=== PATIENT | female | born 2005 | race Caucasian/White ===

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

== ENCOUNTER 2023-04-04 12:47 | Emergency (ER) | payer OTHER ==
[2023-04-04 13:45] VITALS: RESP 16
[2023-04-04] MEDS ORDERED: METOCLOPRAMIDE 5 MG/ML 2 ML VIAL IVP STA (14:16)
[2023-04-04] MEDS ORDERED: SODIUM CHLORIDE 0.9% 2,000 ML IV STA (14:16)
--- NOTE | 2023-04-04 14:28 | ED ---
Nausea/Vomiting/Diarrhea HPI - General Source: patient, RN notes reviewed Mode of arrival: ambulatory Limitations: no limitations <Laz Cook - Last Filed: 04/04/23 15:39> <Marvin Hobbs - Last Filed: 04/05/23 06:24> - General Chief complaint: Nausea/Vomiting/Diarrhea Stated complaint: Vomiting, 6 wks Time Seen by Provider: 04/04/23 14:00 - History of Present Illness Initial comments: 17-year-old female presents emergency Department with chief complaint of nausea vomiting . Patient states she is A0 currently 5-6 weeks . Patient denies any vaginal bleeding states she does have mild discomfort denies follow-up with CIVIL DRAFTER this point states she's been vomiting every morning. In which she states she's not been able stop eating today. Patient denies any hematemesis denies fevers or chills. (Laz Cook) - Related Data Home Medications Medication Instructions Recorded Confirmed Albuterol Sulfate [Proair Hfa] 1 - 2 puff INHALATION RT-Q4H PRN 08/20/22 08/20/22 Previous Rx's Medication Instructions Recorded Doxycycline [Vibramycin] 100 mg PO BID 1 Days #28 each 08/20/22 Naproxen [Naprosyn] 375 mg PO Q12HR PRN #20 tablet 08/20/22 Ondansetron Odt [Zofran Odt] 4 mg PO Q8HR PRN #10 tab 04/04/23 Allergies Allergy/AdvReac Type Severity Reaction Status Date / Time No Known Allergies Allergy Verified 04/04/23 13:42 Review of Systems ROS Other: All systems not noted in ROS Statement are negative. <aLz Cook - Last Filed: 04/04/23 15:39> ROS Other: All systems not noted in ROS Statement are negative. <Marvin Hobbs - Last Filed: 04/05/23 06:24> ROS Statement: Those systems with pertinent positive or pertinent negative responses have been documented in the HPI. Past Medical History Past Medical History: No Reported History History of Any Multi-Drug Resistant Organisms: None Reported Past Surgical History: No Surgical Hx Reported Past Psychological History: ADD/ADHD, Depression Smoking Status: Vaper Past Alcohol Use History: None Reported Past Drug Use History: None Reported <Laz Cook - Last Filed: 04/04/23 15:39> General Exam Limitations: no limitations General appearance: alert, in no apparent distress Head exam: Present: atraumatic, normocephalic, normal inspection Eye exam: Present: normal appearance, PERRL, EOMI. Absent: scleral icterus, conjunctival injection, periorbital swelling ENT exam: Present: normal exam, mucous membranes moist Neck exam: Present: normal inspection, full ROM. Absent: tenderness, meningismus, lymphadenopathy Respiratory exam: Present: normal lung sounds bilaterally. Absent: respiratory distress, wheezes, rales, rhonchi, stridor Cardiovascular Exam: Present: regular rate, normal rhythm, normal heart sounds. Absent: systolic murmur, diastolic murmur, rubs, gallop, clicks GI/Abdominal exam: Present: soft, normal bowel sounds. Absent: distended, tenderness, guarding, rebound, rigid <Laz Cook - Last Filed: 04/04/23 15:39> Course Vital Signs 04/04/23 04/04/23 13:42 15:45 Temperature 97.7 F 97.9 F Pulse Rate 79 88 Respiratory 16 16 Rate Blood Pressure 105/69 121/81 O2 Sat by Pulse 100 96 Oximetry Medical Decision Making - Lab Data Result diagrams: 04/04/23 14:25 04/04/23 14:25 <Laz Cook - Last Filed: 04/04/23 15:39> - Lab Data Result diagrams: 04/04/23 14:25 04/04/23 14:25 <Marvin Hobbs - Last Filed: 04/05/23 06:24> - Medical Decision Making Was pt. sent in by a medical professional or institution (, PA, MOBILE MARKETING SPECIALIST, urgent care, hospital, or care home...) When possible be specific @ -No Did you speak to anyone other than the patient for history (EMS, parent, family, police, friend...)? What history was obtained from this source @ -No Did you review nursing and triage notes (agree or disagree)? Why? @ -I reviewed and agree with nursing and triage notes Were old charts reviewed (outside hosp., previous admission, EMS record, old EKG, old radiological studies, urgent care reports/EKG's, care home records)? Report findings @ -No old charts were reviewed Differential Diagnosis (chest pain, altered mental status, abdominal pain women, abdominal pain men, vaginal bleeding, weakness, fever, dyspnea, syncope, headache, dizziness, GI bleed, back pain, seizure, CVA, palpatations, mental health, musculoskeletal)? @ -Nausea vomiting , dehydration, miscarriage EKG interpreted by me (3pts min.). @ -None X-rays interpreted by me (1pt min.). @ -None done CT interpreted by me (1pt min.). @ -None done U/S interpreted by me (1pt. min.). @ -Ultrasound shows single viable IUP 6 weeks and 3 days What testing was considered but not performed or refused? (CT, X-rays, U/S, labs)? Why? @ -None What meds were considered but not given or refused? Why? @ -None Did you discuss the management of the patient with other professionals (carmita martin i.e. , PA, MOBILE MARKETING SPECIALIST, lab, RT, psych nurse, perinatal social worker, acquisition editor, teacher, facility security officer, rifle case repairer)? Give summary @ -No Was smoking cessation discussed for >3mins.? @ -No Was critical care preformed (if so, how long)? @ -No Were there social determinants of health that impacted care today? How? (Homelessness, low income, unemployed, alcoholism, drug addiction, transportatio n, low edu. Level, literacy, decrease access to med. care, [facility], rehab)? @ -No Was there de-escalation of care discussed even if they declined (Discuss DNR or withdrawal of care, Hospice)? DNR status @ -No What co-morbidities impacted this encounter? (DM, HTN, Smoking, COPD, CAD, Cancer, CVA, ARF, Chemo, Hep., AIDS, mental health diagnosis, sleep apnea, morbid obesity)? @ -None Was patient admitted / discharged? Hospital course, mention meds given and route, prescriptions, significant lab abnormalities, going to OR and other pertinent info. @ -Discharge patient feels greatly improved with IV fluids and antiemetics ultrasound is unremarkable patient discharged in stable condition. course Undiagnosed new problem with uncertain prognosis? @ -No Drug Therapy requiring intensive monitoring for toxicity (Heparin, Nitro, Insulin, Cardizem)? @ -No Were any procedures done? @ -No Diagnosis/symptom? @ -Nausea vomiting Acute, or Chronic, or Acute on Chronic? @ -Acute Uncomplicated (without systemic symptoms) or Complicated (systemic symptoms)? @ -Uncomplicated Side effects of treatment? @ -No Exacerbation, Progression, or Severe Exacerbation? @ -No Poses a threat to life or bodily function? How? (Chest pain, USA, [place], pneumonia, PE, COPD, DKA, ARF, appy, cholecystitis, CVA, Diverticulitis, Homicidal, Suicidal, threat to staff... and all critical care pts) @ -No (Laz Cook) - Lab Data Lab Results 04/04/23 04/04/23 04/04/23 Range/Units 14:25 14:25 14:25 WBC 9.1 (4.0-11.0) k/uL RBC 4.82 (3.80-5.40) m/uL Hgb 14.8 (11.4-16.0) gm/dL Hct 42.1 (34.0-46.0) % MCV 87.4 (80.0-100.0) fL MCH 30.7 (25.0-35.0) pg MCHC 35.2 (31.0-37.0) g/dL RDW 12.1 (11.5-15.5) % Plt Count 254 (150-450) k/uL MPV 7.9 Neutrophils % 65 % Lymphocytes % 27 % Monocytes % 4 % Eosinophils % 3 % Basophils % 1 % Neutrophils # 5.9 (1.3-7.7) k/uL Lymphocytes # 2.4 (1.0-4.8) k/uL Monocytes # 0.4 (0-1.0) k/uL Eosinophils # 0.2 (0-0.7) k/uL Basophils # 0.1 (0-0.2) k/uL Sodium 136 L (137-145) mmol/L Potassium 4.0 (3.5-5.1) mmol/L Chloride 101 (98-107) mmol/L Carbon Dioxide 23 (22-30) mmol/L Anion Gap 12 mmol/L BUN 7 (7-17) mg/dL Creatinine 0.57 (0.52-1.04) mg/dL Est GFR (CKD-EPI)AfAm >90 (>60 ml/min/1.73 sqM) Est GFR (CKD-EPI)NonAf >90 (>60 ml/min/1.73 sqM) Glucose 86 (74-99) mg/dL Calcium 9.6 (8.4-10.2) mg/dL Magnesium 2.0 (1.6-2.3) mg/dL Total Bilirubin 1.1 (0.2-1.3) mg/dL AST 23 (14-36) U/L ALT 15 (4-34) U/L Alkaline Phosphatase 55 (38-126) U/L Total Protein 7.9 (6.3-8.2) g/dL Albumin 4.8 (3.5-5.0) g/dL HCG, Quant 66421.4 mIU/mL Urine Color Colorless Urine Appearance C (Clear) Urine pH 7.5 (5.0-8.0) Ur Specific [place] 1.015 (1.001-1.035) Urine Protein Negative (Negative) Urine Glucose (UA) Negative (Negative) Urine Ketones Negative (Negative) Urine Blood Negative (Negative) Urine Nitrite Negative (Negative) Urine Bilirubin Negative (Negative) Urine Urobilinogen <0.2 (<2.0) mg/dL Ur Leukocyte Esterase Negative (Negative) Urine RBC <1 (0-5) /hpf Urine WBC 1 (0-5) /hpf Ur Squamous Epith Cells 1 (0-4) /hpf Urine Bacteria Occasional H (None) /hpf Urine Mucus Rare H (None) /hpf Urine Opiates Screen Not Detected (NotDetected) Ur Oxycodone Screen Not Detected (NotDetected) Urine Methadone Screen Not Detected (NotDetected) Ur Propoxyphene Screen Not Detected (NotDetected) Ur Barbiturates Screen Not Detected (NotDetected) U Tricyclic Antidepress Not Detected (NotDetected) Ur Phencyclidine Scrn Not Detected (NotDetected) Ur Amphetamines Screen Not Detected (NotDetected) U Methamphetamines Scrn Not Detected (NotDetected) U Benzodiazepines Scrn Not Detected (NotDetected) Urine Cocaine Screen Not Detected (NotDetected) U Marijuana (THC) Screen Detected H (NotDetected) Disposition Is patient prescribed a controlled substance at d/c from ED?: No <Laz Cook - Last Filed: 04/04/23 15:39> <Marvin Hobbs - Last Filed: 04/05/23 06:24> Clinical Impression: Nausea/vomiting in Disposition: HOME SELF-CARE Condition: Stable Instructions (If sedation given, give patient instructions): Acute Nausea and Vomiting (ED) Additional Instructions: Please return to the Emergency Department if symptoms worsen or any other concerns. Prescriptions: Ondansetron Odt [Zofran Odt] 4 mg PO Q8HR PRN #10 tab PRN Reason: Nausea Referrals: None,Stated [Primary Care Provider] - 1-2 days
[2023-04-04 14:38] LABS: Basophils # (A) 0.1 k/uL (0-0.2); Basophils % (A) 1 %; Eosinophils # (A) 0.2 k/uL (0-0.7); Eosinophils % (A) 3 %; HCT 42.1 % (34.0-46.0); HGB 14.8 gm/dL (11.4-16.0); Lymphocytes # (A) 2.4 k/uL (1.0-4.8); Lymphocytes % (A) 27 %; MCH 30.7 pg (25.0-35.0); MCHC 35.2 g/dL (31.0-37.0); MCV 87.4 fL (80.0-100.0); Mean Platelet Volume 7.9; Monocytes # (A) 0.4 k/uL (0-1.0); Monocytes % (A) 4 %; Neutrophils # (A) 5.9 k/uL (1.3-7.7); Neutrophils % (A) 65 %; Platelet Count 254 k/uL (150-450); RBC 4.82 m/uL (3.80-5.40); RDW 12.1 % (11.5-15.5); WBC 9.1 k/uL (4.0-11.0)
[2023-04-04 15:07] LABS: Bilirubin,Urine Negative (Negative); Blood,Urine Negative (Negative); Color,Urine Colorless; Glucose,Urine (UA) Negative (Negative); Ketones,Urine Negative (Negative); Leukocyte Esterase,Urine Negative (Negative); Nitrite,Urine Negative (Negative); PH, Urine 7.5 (5.0-8.0); Protein,Urine Negative (Negative); Specific Gravity,Urine 1.015 (1.001-1.035); Urobilinogen,Urine <0.2 mg/dL (<2.0)
[2023-04-04 15:10] LABS: Bacteria,Urine Occasional /hpf; Mucus,Urine Rare /hpf; RBC,Urine <1 /hpf (0-5); Squamous Epithelial Cell,Urine 1 /hpf (0-4); WBC,Urine 1 /hpf (0-5)
[2023-04-04 15:13] LABS: Amphetamine Screen,Urine Not Detected (NotDetected); Barbiturate Screen,Urine Not Detected (NotDetected); Benzodiazepines Screen,Urine Not Detected (NotDetected); Cocaine Screen,Urine Not Detected (NotDetected); Methadone Screen, Urine Not Detected (NotDetected); Opiate Screen,Urine Not Detected (NotDetected); Oxycodone Screen, Urine Not Detected (NotDetected); Phencyclidine Screen,Urine Not Detected (NotDetected); Tricyclic Antidepressant,Urine Not Detected (NotDetected); Urn Cannabinoid Scrn Detected (NotDetected)
[2023-04-04 15:24] LABS: ALT 15 U/L (4-34); AST 23 U/L (14-36); African American GFR (CKD) >90 (>60 ml/min/1.73 sqM); Albumin 4.8 g/dL (3.5-5.0); Alkaline Phosphatase 55 U/L (38-126); Anion Gap 12 mmol/L; Blood Urea Nitrogen 7 mg/dL (7-17); Calcium 9.6 mg/dL (8.4-10.2); Carbon Dioxide 23 mmol/L (22-30); Chloride 101 mmol/L (98-107); Glucose 86 mg/dL (74-99); Non-African American GFR(CKD) >90 (>60 ml/min/1.73 sqM); Sodium 136 mmol/L (137-145); Total Bilirubin 1.1 mg/dL (0.2-1.3); Total Protein 7.9 g/dL (6.3-8.2)
--- NOTE | 2023-04-04 15:37 | US ---
EXAMINATION TYPE: Transabdominal DATE OF EXAM: 04/04/2023 3:11 PM COMPARISON: NONE CLINICAL INDICATION: Female, 17 years old with history of pain; nausea and vomiting EXAM PERFORMED: Transabdominal (TA) EXAM MEASUREMENTS: GESTATIONAL AGE / DATING Physician Established: Not yet established Dates by LMP: LMP unknown Dates by First Scan: No previous this is first scan Dates by Current Scan for: (6 weeks/3 days) EDC: 11/25/2023 MATERNAL ANATOMY Uterus: 7.7 x 6.1 x 7.0 cm Right Ovary: Obscured by bowel gas. Left Ovary: 2.9 x 1.5 x 1.9 cm Post CDS / Adnexa: wnl Presence of free fluid: no Presence of corpus luteal cyst: no Presence of subchorionic bleed: no GESTATION / SURVEY CRL: 0.60 cm (6 weeks/3 days) Yolk Sac (normal less than 6mm): 3 mm Heart Rate: 157 bpm Rhythm: Normal IUP: Viable IUP IMPRESSION: Single viable intrauterine .
[2023-04-04 15:54] VITALS: BP 121/81; PULSE 88; TEMP 97.9
[2023-04-04 16:16] LABS: HCG,Quantitative Serum 49858.4 mIU/mL
[2023-04-07 08:33] LABS: Appearance,Urine Clear (Clear)
== END 2023-04-04 15:52 | disposition home or self-care (01) ==
LOC: EC 12:47
DX: O21.9 Vomiting of pregnancy, unspecified (principal); O99.331 Smoking (tobacco) complicating pregnancy, first trimester; F17.290 Nicotine dependence, other tobacco product, uncomplicated; Z86.59 Personal history of other mental and behavioral disorders; Z3A.01 Less than 8 weeks gestation of pregnancy
CPT/HCPCS: 36415; 80053; 83735; 85025; 81003; 81001; 84702; 80306; 76801; 99284; 96374; 96361; J2765

== ENCOUNTER 2023-04-23 09:14 | Emergency (ER) | payer OTHER ==
[2023-04-23] MEDS ORDERED: SODIUM CHLORIDE 0.9% 1,000 ML IV ONE ×2 (09:25→11:30)
--- NOTE | 2023-04-23 09:30 | ED ---
General Adult HPI - General Chief complaint: Nausea/Vomiting/Diarrhea Stated complaint: 9wks preg, vomiting Time Seen by Provider: 04/23/23 09:16 Source: patient, RN notes reviewed, old records reviewed Mode of arrival: ambulatory Limitations: no limitations - History of Present Illness Initial comments: 17-year-old female presenting for evaluation of persistent nausea and vomiting over the past one week or so. Patient is currently 9 weeks . She had been seen in the emergency department and proceeded ultrasound several weeks prior. She has not had her scheduled initial appointment with obstetrics. No abdominal pain. No fever. - Related Data Home Medications Medication Instructions Recorded Confirmed Albuterol Sulfate [Proair Hfa] 1 - 2 puff INHALATION RT-Q4H PRN 08/20/22 08/20/22 Previous Rx's Medication Instructions Recorded Doxycycline [Vibramycin] 100 mg PO BID 1 Days #28 each 08/20/22 Naproxen [Naprosyn] 375 mg PO Q12HR PRN #20 tablet 08/20/22 Ondansetron Odt [Zofran Odt] 4 mg PO Q8HR PRN #10 tab 04/04/23 Cephalexin [Keflex] 500 mg PO Q12HR #20 cap 04/23/23 Doxylamine Succinate [Unisom] 25 mg PO Q6H #30 tab 04/23/23 Pyridoxine [Vitamin B-6] 50 mg PO BID 30 Days #60 tablet 04/23/23 Allergies Allergy/AdvReac Type Severity Reaction Status Date / Time No Known Allergies Allergy Verified 04/23/23 09:17 Review of Systems ROS Statement: Those systems with pertinent positive or pertinent negative responses have been documented in the HPI. ROS Other: All systems not noted in ROS Statement are negative. Past Medical History Past Medical History: No Reported History History of Any Multi-Drug Resistant Organisms: None Reported Past Surgical History: No Surgical Hx Reported Past Psychological History: ADD/ADHD, Depression Smoking Status: Vaper Past Alcohol Use History: None Reported Past Drug Use History: None Reported General Exam Limitations: no limitations General appearance: alert, in no apparent distress Head exam: Present: atraumatic, normocephalic Eye exam: Present: normal appearance, PERRL ENT exam: Present: mucous membranes dry Neck exam: Present: normal inspection. Absent: tenderness, meningismus Respiratory exam: Present: normal lung sounds bilaterally. Absent: respiratory distress, wheezes Cardiovascular Exam: Present: regular rate, normal rhythm GI/Abdominal exam: Present: soft. Absent: distended, tenderness, guarding, rebound Extremities exam: Present: normal inspection, normal capillary refill Neurological exam: Present: alert, oriented X3. Absent: CN II-XII intact, motor sensory deficit Psychiatric exam: Present: normal affect, normal mood Skin exam: Present: warm, dry, intact. Absent: cyanosis, diaphoretic Course Vital Signs 04/23/23 04/23/23 04/23/23 09:15 10:37 11:40 Temperature 98.4 F 98.5 F 98.4 F Pulse Rate 72 75 76 Respiratory 20 17 18 Rate Blood Pressure 135/74 110/75 108/66 O2 Sat by Pulse 99 100 100 Oximetry Medical Decision Making - Medical Decision Making Was pt. sent in by a medical professional or institution (DIAN Fitzpatrick, WATER CONTROL SUPERVISOR, urgent care, hospital, or alf...) When possible be specific @ -No Did you speak to anyone other than the patient for history (EMS, parent, family, police, friend...)? What history was obtained from this source @ -No Did you review nursing and triage notes (agree or disagree)? Why? @ -I reviewed and agree with nursing and triage notes Were old charts reviewed (outside hosp., previous admission, EMS record, old EKG, old radiological studies, urgent care reports/EKG's, alf records)? Report findings @ -No old charts were reviewed Differential Diagnosis (chest pain, altered mental status, abdominal pain women, abdominal pain men, vaginal bleeding, weakness, fever, dyspnea, syncope, headache, dizziness, GI bleed, back pain, seizure, CVA, palpatations, mental health, musculoskeletal)? @Nausea vomiting of , hyperemesis gravidarum, acute cholecystitis, gastroenteritis EKG interpreted by me (3pts min.). @ -As above X-rays interpreted by me (1pt min.). @ -None done CT interpreted by me (1pt min.). @ -None done U/S interpreted by me (1pt. min.). @ -None done What testing was considered but not performed or refused? (CT, X-rays, U/S, labs)? Why? @ -None What meds were considered but not given or refused? Why? @ -None Did you discuss the management of the patient with other professionals (professionals i.e. , PA, WATER CONTROL SUPERVISOR, lab, RT, psych nurse, social service worker, varnish supervisor, teacher, medical laboratory technical officer, telephonic case manager)? Give summary @ -No Was smoking cessation discussed for >3mins.? @ -No Was critical care preformed (if so, how long)? @ -No Were there social determinants of health that impacted care today? How? (Homeles sness, low income, unemployed, alcoholism, drug addiction, transportation, low edu. Level, literacy, decrease access to med. care, [facility] [facility], rehab)? @ -No Was there de-escalation of care discussed even if they declined (Discuss DNR or withdrawal of care, Hospice)? DNR status @ -No What co-morbidities impacted this encounter? (DM, HTN, Smoking, COPD, CAD, Cancer, CVA, ARF, Chemo, Hep., AIDS, mental health diagnosis, sleep apnea, morbid obesity)? @Current Was patient admitted / discharged? Hospital course, mention meds given and route, prescriptions, significant lab abnormalities, going to OR and other pertinent info. @ -[17-year-old female with persistent nausea and vomiting over the past one week, patient is currently 9 weeks . No vaginal bleeding, no vaginal discharge. No fevers. Patient does appear dehydrated. Laboratory studies are obtained and the patient is given 2 L normal saline. She has normal CBC, CMP is essentially unremarkable. She has 4+ ketones in the urine consistent with starvation ketosis and dehydration. She is not currently taking any antiemetics at home. Will initiate vitamin B6 and doxylamine. 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 Undiagnosed new problem with uncertain prognosis? @ -No Drug Therapy requiring intensive monitoring for toxicity (Heparin, Nitro, Insulin, Cardizem)? @ -No Were any procedures done? @ -No Diagnosis/symptom? @ -Hyperemesis gravidarum Acute, or Chronic, or Acute on Chronic? @ -Acute Uncomplicated (without systemic symptoms) or Complicated (systemic symptoms)? @ -default Side effects of treatment? @ -No Exacerbation, Progression, or Severe Exacerbation? @ -No Poses a threat to life or bodily function? How? (Chest pain, USA, [place], pneumonia, PE, COPD, DKA, ARF, appy, cholecystitis, CVA, Diverticulitis, Homicidal, Suicidal, threat to staff... and all critical care pts) @ -Low risk - Lab Data Result diagrams: 04/23/23 09:31 04/23/23 09:31 Lab Results 04/23/23 04/23/23 04/23/23 Range/Units 09:31 09:31 09:31 WBC 8.5 (4.0-11.0) k/uL RBC 4.81 (3.80-5.40) m/uL Hgb 14.4 (11.4-16.0) gm/dL Hct 41.5 (34.0-46.0) % MCV 86.3 (80.0-100.0) fL MCH 29.8 (25.0-35.0) pg MCHC 34.6 (31.0-37.0) g/dL RDW 12.0 (11.5-15.5) % Plt Count 223 (150-450) k/uL MPV 7.5 Neutrophils % 78 % Lymphocytes % 17 % Monocytes % 3 % Eosinophils % 2 % Basophils % 0 % Neutrophils # 6.6 (1.3-7.7) k/uL Lymphocytes # 1.5 (1.0-4.8) k/uL Monocytes # 0.2 (0-1.0) k/uL Eosinophils # 0.1 (0-0.7) k/uL Basophils # 0.0 (0-0.2) k/uL Sodium 136 L (137-145) mmol/L Potassium 3.7 (3.5-5.1) mmol/L Chloride 103 (98-107) mmol/L Carbon Dioxide 18 L (22-30) mmol/L Anion Gap 15 mmol/L BUN 12 (7-17) mg/dL Creatinine 0.59 (0.52-1.04) mg/dL Est GFR (CKD-EPI)AfAm >90 (>60 ml/min/1.73 sqM) Est GFR (CKD-EPI)NonAf >90 (>60 ml/min/1.73 sqM) Glucose 74 (74-99) mg/dL Calcium 9.3 (8.4-10.2) mg/dL Total Bilirubin 1.5 H (0.2-1.3) mg/dL AST 35 (14-36) U/L ALT 44 H (4-34) U/L Alkaline Phosphatase 53 (38-126) U/L Total Protein 7.4 (6.3-8.2) g/dL Albumin 4.6 (3.5-5.0) g/dL Urine Color Yellow Urine Appearance Clear (Clear) Urine pH 5.5 (5.0-8.0) Ur Specific [place] 1.034 (1.001-1.035) Urine Protein 2+ H (Negative) Urine Glucose (UA) Negative (Negative) Urine Ketones 4+ H (Negative) Urine Blood Negative (Negative) Urine Nitrite Negative (Negative) Urine Bilirubin Negative (Negative) Urine Urobilinogen 2.0 (<2.0) mg/dL Ur Leukocyte Esterase Negative (Negative) Urine RBC 1 (0-5) /hpf Urine WBC 2 (0-5) /hpf Ur Squamous Epith Cells 14 H (0-4) /hpf Urine Bacteria Occasional H (None) /hpf Urine Mucus Occasional H (None) /hpf Blood Type Blood Type Confirm Blood Type Recheck Bld Type Recheck Status 04/23/23 04/23/23 Range/Units 10:35 10:40 WBC (4.0-11.0) k/uL RBC (3.80-5.40) m/uL Hgb (11.4-16.0) gm/dL Hct (34.0-46.0) % MCV (80.0-100.0) fL MCH (25.0-35.0) pg MCHC (31.0-37.0) g/dL RDW (11.5-15.5) % Plt Count (150-450) k/uL MPV Neutrophils % % Lymphocytes % % Monocytes % % Eosinophils % % Basophils % % Neutrophils # (1.3-7.7) k/uL Lymphocytes # (1.0-4.8) k/uL Monocytes # (0-1.0) k/uL Eosinophils # (0-0.7) k/uL Basophils # (0-0.2) k/uL Sodium (137-145) mmol/L Potassium (3.5-5.1) mmol/L Chloride (98-107) mmol/L Carbon Dioxide (22-30) mmol/L Anion Gap mmol/L BUN (7-17) mg/dL Creatinine (0.52-1.04) mg/dL Est GFR (CKD-EPI)AfAm (>60 ml/min/1.73 sqM) Est GFR (CKD-EPI)NonAf (>60 ml/min/1.73 sqM) Glucose (74-99) mg/dL Calcium (8.4-10.2) mg/dL Total Bilirubin (0.2-1.3) mg/dL AST (14-36) U/L ALT (4-34) U/L Alkaline Phosphatase (38-126) U/L Total Protein (6.3-8.2) g/dL Albumin (3.5-5.0) g/dL Urine Color Urine Appearance (Clear) Urine pH (5.0-8.0) Ur Specific [place] (1.001-1.035) Urine Protein (Negative) Urine Glucose (UA) (Negative) Urine Ketones (Negative) Urine Blood (Negative) Urine Nitrite (Negative) Urine Bilirubin (Negative) Urine Urobilinogen (<2.0) mg/dL Ur Leukocyte Esterase (Negative) Urine RBC (0-5) /hpf Urine WBC (0-5) /hpf Ur Squamous Epith Cells (0-4) /hpf Urine Bacteria (None) /hpf Urine Mucus (None) /hpf Blood Type A Positive Blood Type Confirm A Positive Blood Type Recheck No Previous Record Bld Type Recheck Status CABO Indicated Disposition Clinical Impression: Nausea/vomiting in Disposition: HOME SELF-CARE Condition: Fair Instructions (If sedation given, give patient instructions): Nausea and Vomiting in (ED) Additional Instructions: Please follow up with your AIRCRAFT ENGINE TECHNICIAN physician Prescriptions: Cephalexin [Keflex] 500 mg PO Q12HR #20 cap Doxylamine Succinate [Unisom] 25 mg PO Q6H #30 tab Pyridoxine [Vitamin B-6] 50 mg PO BID 30 Days #60 tablet Is patient prescribed a controlled substance at d/c from ED?: No Referrals: None,Stated [Primary Care Provider] - 1-2 days Alexandrea Stock MD [STAFF PHYSICIAN] - 1-2 days Time of Disposition: 12:37
[2023-04-23 09:46] LABS: Basophils % (A) 0 %; Eosinophils # (A) 0.1 k/uL (0-0.7); Eosinophils % (A) 2 %; HCT 41.5 % (34.0-46.0); HGB 14.4 gm/dL (11.4-16.0); Lymphocytes # (A) 1.5 k/uL (1.0-4.8); Lymphocytes % (A) 17 %; MCH 29.8 pg (25.0-35.0); MCHC 34.6 g/dL (31.0-37.0); MCV 86.3 fL (80.0-100.0); Mean Platelet Volume 7.5; Monocytes # (A) 0.2 k/uL (0-1.0); Monocytes % (A) 3 %; Neutrophils # (A) 6.6 k/uL (1.3-7.7); Neutrophils % (A) 78 %; Platelet Count 223 k/uL (150-450); RBC 4.81 m/uL (3.80-5.40); WBC 8.5 k/uL (4.0-11.0)
[2023-04-23 09:54] LABS: Appearance,Urine Clear (Clear); Bacteria,Urine Occasional /hpf; Bilirubin,Urine Negative (Negative); Blood,Urine Negative (Negative); Color,Urine Yellow; Glucose,Urine (UA) Negative (Negative); Ketones,Urine 4+ (Negative); Leukocyte Esterase,Urine Negative (Negative); Mucus,Urine Occasional /hpf; Nitrite,Urine Negative (Negative); PH, Urine 5.5 (5.0-8.0); Protein,Urine 2+ (Negative); RBC,Urine 1 /hpf (0-5); Specific Gravity,Urine 1.034 (1.001-1.035); Squamous Epithelial Cell,Urine 14 /hpf (0-4); WBC,Urine 2 /hpf (0-5)
[2023-04-23 11:41] VITALS: PULSE 76; TEMP 98.4
[2023-04-23 11:59] LABS: ALT 44 U/L (4-34); AST 35 U/L (14-36); African American GFR (CKD) >90 (>60 ml/min/1.73 sqM); Albumin 4.6 g/dL (3.5-5.0); Alkaline Phosphatase 53 U/L (38-126); Anion Gap 15 mmol/L; Blood Urea Nitrogen 12 mg/dL (7-17); Calcium 9.3 mg/dL (8.4-10.2); Carbon Dioxide 18 mmol/L (22-30); Chloride 103 mmol/L (98-107); Glucose 74 mg/dL (74-99); Non-African American GFR(CKD) >90 (>60 ml/min/1.73 sqM); Potassium 3.7 mmol/L (3.5-5.1); Sodium 136 mmol/L (137-145); Total Bilirubin 1.5 mg/dL (0.2-1.3); Total Protein 7.4 g/dL (6.3-8.2)
[2023-04-23] MEDS ORDERED: ONDANSETRON 4 MG/2 ML VIAL IVP STA (12:22)
[2023-04-23 12:36] VITALS: RESP 17
[2023-04-23 13:13] VITALS: BP 103/66
== END 2023-04-23 13:13 | disposition home or self-care (01) ==
LOC: EC 09:14
DX: O21.9 Vomiting of pregnancy, unspecified (principal); O99.331 Smoking (tobacco) complicating pregnancy, first trimester; F17.290 Nicotine dependence, other tobacco product, uncomplicated; Z86.59 Personal history of other mental and behavioral disorders; Z3A.09 9 weeks gestation of pregnancy
CPT/HCPCS: 36415; 86900; 86901; 80053; 85025; 81001; 84702; 99284; 96374; 96361 ×2; J2405

== ENCOUNTER 2023-05-08 14:07 | Emergency (ER) | payer OTHER ==
[2023-05-08 14:12] VITALS: RESP 18; TEMP 97.5
[2023-05-08 14:15] LABS: Glucose,Whole Blood 137 mg/dL (70-110)
[2023-05-08 14:51] LABS: Appearance,Urine Clear (Clear); Bacteria,Urine Rare /hpf; Bilirubin,Urine 1+ (Negative); Blood,Urine Negative (Negative); Color,Urine Yellow; Glucose,Urine (UA) Negative (Negative); Ketones,Urine 4+ (Negative); Leukocyte Esterase,Urine Negative (Negative); Mucus,Urine Many /hpf; Nitrite,Urine Negative (Negative); Protein,Urine 1+ (Negative); RBC,Urine <1 /hpf (0-5); Specific Gravity,Urine 1.033 (1.001-1.035); Squamous Epithelial Cell,Urine 11 /hpf (0-4); WBC,Urine 1 /hpf (0-5)
[2023-05-08] MEDS ORDERED: CEPHALEXIN 250 MG CAP PO STA (15:08)
--- NOTE | 2023-05-08 15:10 | ED ---
Dizziness HPI - General Chief Complaint: Dizziness Stated Complaint: high blood sugar Time Seen by Provider: 05/08/23 14:18 Source: patient Mode of arrival: ambulatory - History of Present Illness Initial Comments: Patient is a 17-year-old female who presents to emergency department for lightheadedness. Patient is 2 months . This is her first . States she felt lightheaded today she checked her blood sugar off her father's glucometer and her blood sugar was in the 400s. She denies history of diabetes. States she has never had issues with blood sugar in the past. Her triage blood sugar is 137. She denies abdominal pain and vaginal bleeding. Patient has had several daily episodes of vomiting during her . She follows Dr. Del Castillo. She is prescribed Zofran and has been using vitamin B6 and Unisom. States they do not usually work. She denies chest pain and shortness of breath. Denies history of syncope and arrhythmia. Denies burning with urination, increased urinary frequency/urgency - Related Data Home Medications Medication Instructions Recorded Confirmed Albuterol Sulfate [Proair Hfa] 1 - 2 puff INHALATION RT-Q4H PRN 08/20/22 05/08/23 Previous Rx's Medication Instructions Recorded Ondansetron Odt [Zofran Odt] 4 mg PO Q8HR PRN #10 tab 04/04/23 Doxylamine Succinate [Unisom] 25 mg PO Q6H #30 tab 04/23/23 Pyridoxine [Vitamin B-6] 50 mg PO BID 30 Days #60 tablet 04/23/23 Cephalexin [Keflex] 250 mg PO Q6HR #20 cap 05/08/23 Allergies Allergy/AdvReac Type Severity Reaction Status Date / Time No Known Allergies Allergy Verified 05/08/23 14:23 Review of Systems ROS Statement: Those systems with pertinent positive or pertinent negative responses have been documented in the HPI. ROS Other: All systems not noted in ROS Statement are negative. Past Medical History Past Medical History: No Reported History History of Any Multi-Drug Resistant Organisms: None Reported Past Surgical History: No Surgical Hx Reported Past Psychological History: ADD/ADHD, Depression Smoking Status: Vaper Past Alcohol Use History: None Reported Past Drug Use History: None Reported General Exam General appearance: alert Eye exam: Present: normal appearance, PERRL, EOMI. Absent: scleral icterus, conjunctival injection, periorbital swelling ENT exam: Present: mucous membranes dry Respiratory exam: Present: normal lung sounds bilaterally. Absent: respiratory distress, wheezes, rales, rhonchi, stridor Cardiovascular Exam: Present: regular rate, normal rhythm, normal heart sounds. Absent: systolic murmur, diastolic murmur, rubs, gallop, clicks GI/Abdominal exam: Present: soft, normal bowel sounds. Absent: distended, tenderness, guarding, rebound, rigid Neurological exam: Present: alert Psychiatric exam: Present: normal affect, normal mood Skin exam: Present: warm, dry, intact, normal color. Absent: rash Course Vital Signs 05/08/23 05/08/23 14:09 16:15 Temperature 97.5 F L Pulse Rate 104 H 86 Respiratory 18 18 Rate Blood Pressure 115/69 97/64 O2 Sat by Pulse 99 Oximetry Medical Decision Making - Medical Decision Making EKG taken at 15:30, interpreted by myself sinus rhythm Ventricular rate 81, WV interval 140, QRS duration 75, QTc 389 Was pt. sent in by a medical professional or institution (, PA, DEVELOPMENT AND PLANNING ENGINEER, urgent care, hospital, or fci...) When possible be specific @ -No Did you speak to anyone other than the patient for history (EMS, parent, family, police, friend...)? What history was obtained from this source @ -No Did you review nursing and triage notes (agree or disagree)? Why? @ -I reviewed and agree with nursing and triage notes Were old charts reviewed (outside hosp., previous admission, EMS record, old EKG, old radiological studies, urgent care reports/EKG's, fci records)? Report findings @ -No old charts were reviewed Differential Diagnosis (chest pain, altered mental status, abdominal pain women, abdominal pain men, vaginal bleeding, weakness, fever, dyspnea, syncope, headache, dizziness, GI bleed, back pain, seizure, CVA, palpatations, mental health)? @ Differential Dizziness: Benign paroxysmal positional Vertigo, Menieres disease, otitis media, acoustic neuroma, vertebrobasilar insufficiency, cerebellar stroke, encephalitis, hypovo lemic, arrhythmia, coronary artery syndrome, anemia, this is not meant to be an all-inclusive list EKG interpreted by me (3pts min.). @ -As above X-rays interpreted by me (1pt min.). @ -None done CT interpreted by me (1pt min.). @ -None done U/S interpreted by me (1pt. min.). @ -None done What testing was considered but not performed or refused? (CT, X-rays, U/S, labs)? Why? @ -Patient declined all testing besides urinalysis What meds were considered but not given or refused? Why? @ -None Did you discuss the management of the patient with other professionals (professionals i.e. , PA, DEVELOPMENT AND PLANNING ENGINEER, lab, RT, psych nurse, professor of social work, hardboard grinder, teacher, mechanical engineering officer, case finishing machine adjuster)? Give summary @ -No Was smoking cessation discussed for >3mins.? @ -No Was critical care preformed (if so, how long)? @ -No Were there social determinants of health that impacted care today? How? (Homelessness, low income, unemployed, alcoholism, drug addiction, transportation, low edu. Level, literacy, decrease access to med. care, [facility], rehab)? @ -No Was there de-escalation of care discussed even if they declined (Discuss DNR or withdrawal of care, Hospice)? DNR status @ -No What co-morbidities impacted this encounter? (DM, HTN, Smoking, COPD, CAD, Cancer, CVA, ARF, Chemo, Hep., AIDS, mental health diagnosis, sleep apnea, morbid obesity)? @ -None Was patient admitted / discharged? Hospital course, mention meds given and route, prescriptions, significant lab abnormalities, going to OR and other pertinent info. @ Patient presenting for lightheadedness. Blood sugar is 137. Patient appears dry. She has had several episodes of vomiting today. She is 2 months . No abdominal pain or vaginal bleeding. I did recommend laboratory studies and IV fluids patient declined. She declined all testing besides urinalysis. Urinalysis reveals 4+ ketones reflecting dehydration. There is no glucose in the urine. There are bacteria without leukocyte esterase. Urine is contaminated by 11 squamous cells however will treat because patient is . Results discussed with patient. Because patient is she will be patient will be discharged with Keflex for asymptomatic bacteriuria. I urged patient to stay for hydration she states her mother is picking her up some Gatorade which she is able to tolerate. She did not have any episodes of vomiting during her visit. Patient to follow-up with OB. Undiagnosed new problem with uncertain prognosis? @ -No Drug Therapy requiring intensive monitoring for toxicity (Heparin, Nitro, Insulin, Cardizem)? @ -No Were any procedures done? @ -No Diagnosis/symptom? @ -Dehydration, asymptomatic bacteriuria, lightheadedness, nausea and vomiting Acute, or Chronic, or Acute on Chronic? @ -Acute Uncomplicated (without systemic symptoms) or Complicated (systemic symptoms)? @ -uncomplicated Side effects of treatment? @ -No Exacerbation, Progression, or Severe Exacerbation? @ -No] Poses a threat to life or bodily function? How? (Chest pain, [place], [place], pneumonia, PE, COPD, DKA, ARF, appy, cholecystitis, CVA, Diverticulitis, Homicidal, Suicidal, threat to staff... and all critical care pts) @ -[No] Dr. Marin is my attending - Lab Data Lab Results 05/08/23 05/08/23 Range/Units 14:13 14:29 POC Glucose (mg/dL) 137 H (70-110) mg/dL POC Glu Weather Observer ID Qian Barnes Urine Color Yellow Urine Appearance Clear (Clear) Urine pH 6.0 (5.0-8.0) Ur Specific [place] 1.033 (1.001-1.035) Urine Protein 1+ H (Negative) Urine Glucose (UA) Negative (Negative) Urine Ketones 4+ H (Negative) Urine Blood Negative (Negative) Urine Nitrite Negative (Negative) Urine Bilirubin 1+ H (Negative) Urine Urobilinogen 8.0 (<2.0) mg/dL Ur Leukocyte Esterase Negative (Negative) Urine RBC <1 (0-5) /hpf Urine WBC 1 (0-5) /hpf Ur Squamous Epith Cells 11 H (0-4) /hpf Urine Bacteria Rare H (None) /hpf Urine Mucus Many H (None) /hpf Disposition Clinical Impression: Dehydration, Lightheadedness, Nausea and vomiting, Asymptomatic bacteriuria Disposition: HOME SELF-CARE Condition: Good Prescriptions: Cephalexin [Keflex] 250 mg PO Q6HR #20 cap Is patient prescribed a controlled substance at d/c from ED?: No Referrals: None,Stated [Primary Care Provider] - 1-2 days
[2023-05-08 16:18] VITALS: BP 97/64; PULSE 86
== END 2023-05-08 16:18 | disposition home or self-care (01) ==
LOC: EC 14:07
DX: E86.0 Dehydration (principal); R42 Dizziness and giddiness; R82.71 Bacteriuria; F17.290 Nicotine dependence, other tobacco product, uncomplicated; Z86.59 Personal history of other mental and behavioral disorders
CPT/HCPCS: 36415; 81001; 93005; 99284

== ENCOUNTER 2023-06-07 12:36 | Emergency (ER) | payer OTHER ==
--- NOTE | 2023-06-07 13:06 | ED ---
General Adult HPI - General Source: patient, RN notes reviewed Mode of arrival: ambulatory Limitations: no limitations <Laz Cook - Last Filed: 06/07/23 13:06> <Nacho Sanchez - Last Filed: 06/07/23 17:48> - General Stated complaint: Vomiting, 16wks Time Seen by Provider: 06/07/23 13:06 - History of Present Illness Initial comments: This 17-year-old female presented emergency department with chief complaint of nausea vomiting. Patient states she's been vomiting for last 4 days. Patient states that she is 16 weeks . Patient also has cough and cold-like symptoms. (Laz Cook) 17-year-old female A0 approximately 16 weeks presents to ED with a chief complaint of nausea and vomiting. Patient states for the past 3 days has had nausea, vomiting, diarrhea, cough, and congestion. States due to this has been unable to keep anything down for the past 3 days. Denies fever. Denies abdominal pain. No vaginal bleeding. States has only had ultrasound that showed IUP. Notes recent suspicious food intake. No other complaints. (Nacho Sanchez) - Related Data Home Medications Medication Instructions Recorded Confirmed Albuterol Sulfate [Proair Hfa] 1 - 2 puff INHALATION RT-Q4H PRN 08/20/22 05/08/23 Previous Rx's Medication Instructions Recorded Ondansetron Odt [Zofran Odt] 4 mg PO Q8HR PRN #10 tab 04/04/23 Doxylamine Succinate [Unisom] 25 mg PO Q6H #30 tab 04/23/23 Pyridoxine [Vitamin B-6] 50 mg PO BID 30 Days #60 tablet 04/23/23 Cephalexin [Keflex] 250 mg PO Q6HR #20 cap 05/08/23 Doxylamine Succinate/Vit B6 1 tab PO DIRECTED PRN #56 tab 06/07/23 [Norm Sutton 10-10 mg Tablet] Allergies Allergy/AdvReac Type Severity Reaction Status Date / Time No Known Allergies Allergy Verified 05/08/23 14:23 Review of Systems ROS Other: All systems not noted in ROS Statement are negative. <Laz Cook - Last Filed: 06/07/23 13:06> ROS Other: All systems not noted in ROS Statement are negative. <LauraNacho - Last Filed: 06/07/23 17:48> ROS Statement: Those systems with pertinent positive or pertinent negative responses have been documented in the HPI. Past Medical History Past Medical History: No Reported History History of Any Multi-Drug Resistant Organisms: None Reported Past Surgical History: No Surgical Hx Reported Past Psychological History: ADD/ADHD, Depression Smoking Status: Vaper Past Alcohol Use History: None Reported Past Drug Use History: None Reported <Laz Cook - Last Filed: 06/07/23 13:06> General Exam <Laz Cook - Last Filed: 06/07/23 13:06> General appearance: alert, in no apparent distress Neck exam: Present: normal inspection Respiratory exam: Present: other (Course breath sounds bilaterally. Some did clear with coughing.) Cardiovascular Exam: Present: regular rate, normal rhythm GI/Abdominal exam: Present: soft (No tenderness to palpation. No rebound guarding or rigidity.) Neurological exam: Present: alert, oriented X3 Psychiatric exam: Present: normal affect, normal mood Skin exam: Present: warm, dry <Nacho Sanchez - Last Filed: 06/07/23 17:48> - General Exam Comments Initial Comments: Visual Physical Exam Vital signs reviewed General: Well-appearing, nontoxic, no acute distress. Head: Normocephalic, atraumatic Eyes: PERRLA, EOMI ENT: Airway patent Chest: Nonlabored breathing Skin: No visual rash, normal skin tone Neuro: Alert and oriented 3 Musculoskeletal: No gross abnormalities (Laz Cook) Course Vital Signs 06/07/23 06/07/23 13:04 17:16 Temperature 98.6 F 98.0 F Pulse Rate 101 H 85 Respiratory 18 17 Rate Blood Pressure 116/75 100/72 O2 Sat by Pulse 98 98 Oximetry Medical Decision Making <Laz Cook - Last Filed: 06/07/23 13:06> - Lab Data Result diagrams: 06/07/23 13:16 06/07/23 13:16 <Nacho Sanchez - Last Filed: 06/07/23 17:48> - Medical Decision Making I performed a quick note portion of this chart signed Laz Cook PA-C (Laz Cook) Was pt. sent in by a medical professional or institution (DIAN Fitzpatrick, DRYING ROOM ATTENDANT, urgent care, hospital, or senior care...) When possible be specific @ -No Did you speak to anyone other than the patient for history (EMS, parent, family, police, friend...)? What history was obtained from this source @ -No Did you review nursing and triage notes (agree or disagree)? Why? @ -I reviewed and agree with nursing and triage notes Were old charts reviewed (outside hosp., previous admission, EMS record, old EKG, old radiological studies, urgent care reports/EKG's, senior care records)? Report findings @ -No old charts were reviewed Differential Diagnosis (chest pain, altered mental status, abdominal pain women, abdominal pain men, vaginal bleeding, weakness, fever, dyspnea, syncope, headache, dizziness, GI bleed, back pain, seizure, CVA, palpatations, mental health, musculoskeletal)? @ -Differential Dyspnea: Coronary syndrome, arrhythmia, tamponade, asthma, COPD, pulmonary embolism, pneumonia, pneumothorax, pulmonary effusion, anaphylaxis, diabetic ketoacidosis, flailed chest, pulmonary contusion, diaphragmatic rupture, anemia, neuromuscular, this is not meant to be an all-inclusive list. EKG interpreted by me (3pts min.). @ -None X-rays interpreted by me (1pt min.). @ -None done CT interpreted by me (1pt min.). @ -None done U/S interpreted by me (1pt. min.). @ -None done What testing was considered but not performed or refused? (CT, X-rays, U/S, labs)? Why? @ -Transvaginal ultrasound was considered however at this time patient reports no abdominal pain and no vaginal bleeding. Chest x-ray was offered to the patient. Risks and benefits were discussed in detail. Due to state, at this time patient deferred chest x-ray. What meds were considered but not given or refused? Why? @ -None Did you discuss the management of the patient with other professionals (professionals i.e. DIAN Fitzpatrick, DRYING ROOM ATTENDANT, lab, RT, psych nurse, certified social workers in health care, medical operations supervisor, teacher, disabilities services officer, child welfare caseworker)? Give summary @ -No Was smoking cessation discussed for >3mins.? @ -No Was critical care preformed (if so, how long)? @ -No Were there social determinants of health that impacted care today? How? (Homelessness, low income, unemployed, alcoholism, drug addiction, tr ansportation, low edu. Level, literacy, decrease access to med. care, detention, rehab)? @ -No Was there de-escalation of care discussed even if they declined (Discuss DNR or withdrawal of care, Hospice)? DNR status @ -No What co-morbidities impacted this encounter? (DM, HTN, Smoking, COPD, CAD, Cancer, CVA, ARF, Chemo, Hep., AIDS, mental health diagnosis, sleep apnea, morbid obesity)? @ -None Was patient admitted / discharged? Hospital course, mention meds given and route, prescriptions, significant lab abnormalities, going to OR and other pertinent info. @ -Discharge A0 approximately 16 week old female presented to the ED with 3-4 days of nausea, vomiting, diarrhea congestion, cough. Laboratory studies including CBC, chemistry panel, and UA unremarkable. Cephid negative. heart tones obtained by labor and delivery which were good, 150 regular strong pulse. Patient had improvement of symptoms with Phenergan. PO challenge here in the ED with success. Provided prescription for Diclegis. Symptoms likely viral in nature. Discharged home in stable condition and advised follow-up with OB. Discussed return precautions with patient and boyfriend who verbalizes agreement. Undiagnosed new problem with uncertain prognosis? @ -No Drug Therapy requiring intensive monitoring for toxicity (Heparin, Nitro, Insulin, Cardizem)? @ -No Were any procedures done? @ -No Diagnosis/symptom? @ -Nausea, vomiting, diarrhea, congestion, cough Acute, or Chronic, or Acute on Chronic? @ -Acute Uncomplicated (without systemic symptoms) or Complicated (systemic symptoms)? @ -Uncomplicated Side effects of treatment? @ -No Exacerbation, Progression, or Severe Exacerbation? @ -No Poses a threat to life or bodily function? How? (Chest pain, USA, [place], pneumonia, PE, COPD, DKA, ARF, appy, cholecystitis, CVA, Diverticulitis, Homicidal, Heidi cidal, threat to staff... and all critical care pts) @ -No (Nacho Sanchez) - Lab Data Lab Results 06/07/23 06/07/23 06/07/23 Range/Units 13:13 13:16 13:16 WBC 10.8 (4.0-11.0) k/uL RBC 4.46 (3.80-5.40) m/uL Hgb 13.2 (11.4-16.0) gm/dL Hct 38.7 (34.0-46.0) % MCV 86.7 (80.0-100.0) fL MCH 29.6 (25.0-35.0) pg MCHC 34.1 (31.0-37.0) g/dL RDW 12.7 (11.5-15.5) % Plt Count 257 (150-450) k/uL MPV 8.2 Neutrophils % 84 % Lymphocytes % 7 % Monocytes % 6 % Eosinophils % 2 % Basophils % 0 % Neutrophils # 9.0 H (1.3-7.7) k/uL Lymphocytes # 0.8 L (1.0-4.8) k/uL Monocytes # 0.6 (0-1.0) k/uL Eosinophils # 0.3 (0-0.7) k/uL Basophils # 0.0 (0-0.2) k/uL Sodium 136 L (137-145) mmol/L Potassium 4.0 (3.5-5.1) mmol/L Chloride 101 (98-107) mmol/L Carbon Dioxide 23 (22-30) mmol/L Anion Gap 12 mmol/L BUN 9 (7-17) mg/dL Creatinine 0.50 L (0.52-1.04) mg/dL Est GFR (CKD-EPI)AfAm >90 (>60 ml/min/1.73 sqM) Est GFR (CKD-EPI)NonAf >90 (>60 ml/min/1.73 sqM) Glucose 105 H (74-99) mg/dL Calcium 9.3 (8.4-10.2) mg/dL Total Bilirubin 1.0 (0.2-1.3) mg/dL AST 35 (14-36) U/L ALT 29 (4-34) U/L Alkaline Phosphatase 65 (38-126) U/L Total Protein 7.1 (6.3-8.2) g/dL Albumin 4.1 (3.5-5.0) g/dL Lipase 52 (23-300) U/L Urine Color Urine Appearance (Clear) Urine pH (5.0-8.0) Ur Specific [place] (1.001-1.035) Urine Protein (Negative) Urine Glucose (UA) (Negative) Urine Ketones (Negative) Urine Blood (Negative) Urine Nitrite (Negative) Urine Bilirubin (Negative) Urine Urobilinogen (<2.0) mg/dL Ur Leukocyte Esterase (Negative) Urine RBC (0-5) /hpf Urine WBC (0-5) /hpf Ur Squamous Epith Cells (0-4) /hpf Urine Mucus (None) /hpf Urine HCG, Qual (Not Detectd) Influenza Type A (PCR) Not Detected (Not Detectd) Influenza Type B (PCR) Not Detected (Not Detectd) RSV (PCR) Not Detected (Not Detectd) SARS-CoV-2 (PCR) Not Detected (Not Detectd) 06/07/23 06/07/23 Range/Units 16:34 16:34 WBC (4.0-11.0) k/uL RBC (3.80-5.40) m/uL Hgb (11.4-16.0) gm/dL Hct (34.0-46.0) % MCV (80.0-100.0) fL MCH (25.0-35.0) pg MCHC (31.0-37.0) g/dL RDW (11.5-15.5) % Plt Count (150-450) k/uL MPV Neutrophils % % Lymphocytes % % Monocytes % % Eosinophils % % Basophils % % Neutrophils # (1.3-7.7) k/uL Lymphocytes # (1.0-4.8) k/uL Monocytes # (0-1.0) k/uL Eosinophils # (0-0.7) k/uL Basophils # (0-0.2) k/uL Sodium (137-145) mmol/L Potassium (3.5-5.1) mmol/L Chloride (98-107) mmol/L Carbon Dioxide (22-30) mmol/L Anion Gap mmol/L BUN (7-17) mg/dL Creatinine (0.52-1.04) mg/dL Est GFR (CKD-EPI)AfAm (>60 ml/min/1.73 sqM) Est GFR (CKD-EPI)NonAf (>60 ml/min/1.73 sqM) Glucose (74-99) mg/dL Calcium (8.4-10.2) mg/dL Total Bilirubin (0.2-1.3) mg/dL AST (14-36) U/L ALT (4-34) U/L Alkaline Phosphatase (38-126) U/L Total Protein (6.3-8.2) g/dL Albumin (3.5-5.0) g/dL Lipase (23-300) U/L Urine Color Dark Yellow Urine Appearance Clear (Clear) Urine pH 6.5 (5.0-8.0) Ur Specific [place] 1.041 H (1.001-1.035) Urine Protein 1+ H (Negative) Urine Glucose (UA) Negative (Negative) Urine Ketones 2+ H (Negative) Urine Blood Negative (Negative) Urine Nitrite Negative (Negative) Urine Bilirubin 1+ H (Negative) Urine Urobilinogen >12.0 (<2.0) mg/dL Ur Leukocyte Esterase Negative (Negative) Urine RBC 1 (0-5) /hpf Urine WBC 1 (0-5) /hpf Ur Squamous Epith Cells 7 H (0-4) /hpf Urine Mucus Few H (None) /hpf Urine HCG, Qual Detected (Not Detectd) Influenza Type A (PCR) (Not Detectd) Influenza Type B (PCR) (Not Detectd) RSV (PCR) (Not Detectd) SARS-CoV-2 (PCR) (Not Detectd) Disposition <Laz Cook - Last Filed: 06/07/23 13:06> Is patient prescribed a controlled substance at d/c from ED?: No Time of Disposition: 17:48 <Nacho Sanchez - Last Filed: 06/07/23 17:48> Clinical Impression: Nausea and vomiting, Disposition: HOME SELF-CARE Condition: Poor Instructions (If sedation given, give patient instructions): (ED), Nausea and Vomiting in (ED) Prescriptions: Doxylamine Succinate/Vit B6 [Diclegis Dr 10-10 mg Tablet] 1 tab PO DIRECTED PRN #56 tab PRN Reason: Nausea Referrals: None,Stated [Primary Care Provider] - 1-2 days
[2023-06-07 14:24] LABS: Basophils % (A) 0 %; Eosinophils # (A) 0.3 k/uL (0-0.7); Eosinophils % (A) 2 %; HCT 38.7 % (34.0-46.0); HGB 13.2 gm/dL (11.4-16.0); Lymphocytes # (A) 0.8 k/uL (1.0-4.8); Lymphocytes % (A) 7 %; MCH 29.6 pg (25.0-35.0); MCHC 34.1 g/dL (31.0-37.0); MCV 86.7 fL (80.0-100.0); Mean Platelet Volume 8.2; Monocytes # (A) 0.6 k/uL (0-1.0); Monocytes % (A) 6 %; Neutrophils % (A) 84 %; Platelet Count 257 k/uL (150-450); RBC 4.46 m/uL (3.80-5.40); RDW 12.7 % (11.5-15.5); WBC 10.8 k/uL (4.0-11.0)
[2023-06-07 14:31] LABS: ALT 29 U/L (4-34); AST 35 U/L (14-36); African American GFR (CKD) >90 (>60 ml/min/1.73 sqM); Albumin 4.1 g/dL (3.5-5.0); Alkaline Phosphatase 65 U/L (38-126); Anion Gap 12 mmol/L; Blood Urea Nitrogen 9 mg/dL (7-17); Calcium 9.3 mg/dL (8.4-10.2); Carbon Dioxide 23 mmol/L (22-30); Chloride 101 mmol/L (98-107); Glucose 105 mg/dL (74-99); Lipase 52 U/L (23-300); Non-African American GFR(CKD) >90 (>60 ml/min/1.73 sqM); Sodium 136 mmol/L (137-145); Total Protein 7.1 g/dL (6.3-8.2)
[2023-06-07] MEDS ORDERED: SODIUM CHLORIDE 0.9% 1,000 ML IV STA (16:14)
[2023-06-07] MEDS ORDERED: PROMETHAZINE 25 MG TAB PO STA (16:15)
[2023-06-07 17:04] LABS: Appearance,Urine Clear (Clear); Bilirubin,Urine 1+ (Negative); Blood,Urine Negative (Negative); Color,Urine Dark Yellow; Glucose,Urine (UA) Negative (Negative); Ketones,Urine 2+ (Negative); Leukocyte Esterase,Urine Negative (Negative); Mucus,Urine Few /hpf; Nitrite,Urine Negative (Negative); PH, Urine 6.5 (5.0-8.0); Protein,Urine 1+ (Negative); RBC,Urine 1 /hpf (0-5); Specific Gravity,Urine 1.041 (1.001-1.035); Squamous Epithelial Cell,Urine 7 /hpf (0-4); Urobilinogen,Urine >12.0 mg/dL (<2.0); WBC,Urine 1 /hpf (0-5)
[2023-06-07] MEDS ORDERED: METOCLOPRAMIDE 5 MG/ML 2 ML VIAL IVP STA (17:51)
[2023-06-07 19:42] VITALS: BP 111/67; PULSE 78; RESP 18; TEMP 98.2
== END 2023-06-07 19:34 | disposition home or self-care (01) ==
LOC: EC 12:36
DX: O21.9 Vomiting of pregnancy, unspecified (principal); O99.891 Other specified diseases and conditions complicating pregnancy; R19.7 Diarrhea, unspecified; R05.9 Cough, unspecified; R09.89 Other specified symptoms and signs involving the circulatory and respiratory systems; O99.332 Smoking (tobacco) complicating pregnancy, second trimester; F17.290 Nicotine dependence, other tobacco product, uncomplicated; Z86.59 Personal history of other mental and behavioral disorders; Z20.822 Contact with and (suspected) exposure to COVID-19; Z3A.16 16 weeks gestation of pregnancy
CPT/HCPCS: 96374 ×2; 99284 ×2; 96361 ×2; 36415; 80053; 83690; 85025; 81001; 81025; 87636; J2765

== ENCOUNTER 2023-08-05 08:27 | Outpatient (CLI) | payer OTHER ==
[2023-08-05] MEDS ORDERED: ONDANSETRON 4 MG/2 ML VIAL IVP STA (08:53)
[2023-08-05] MEDS ORDERED: FAMOTIDINE 20 MG/2 ML VIAL IV SCH (09:00)
[2023-08-05] MEDS ORDERED: LACTATED RINGERS 1,000 ML IV SCH (09:00)
[2023-08-05 12:05] VITALS: BP 117/60; PULSE 97; RESP 18; TEMP 95.9
--- NOTE | 2023-08-11 08:26 | P.MSEPDOC ---
Presenting Problems - Arrival Data Date of Arrival on Unit: 08/05/23 Time of Arrival on Unit: 08:27 Mode of Transport: EMS - Complaint OB-Reason for Admission/Chief Complaint: Acute Nausea/Vomiting Comment: N/V x 2 days Medical History - Information : 1 Para: 0 - Gestational Age Gestational Age by ANGELES (wks/days): 24 Weeks and 0 Days - History Complications: Smoker Review of Systems - Review of Systems Constitutional: No problems Breast: No problems ENT: No problems Cardiovascular: No problems Respiratory: No problems Gastrointestinal: No problems Genitourinary: No problems Musculoskeletal: No problems Neurological: No problems Skin: No problems Vital Signs - Temperature Temperature: 95.9 F Temperature Source: Temporal Artery Scan - Pulse Right Sitting Brachial Pulse Rate: 97 Pulse Assessment Method: Pulse Oximetry - Respirations Respiratory Rate: 18 Oxygen Delivery Method: Room Air O2 Sat by Pulse Oximetry: 98 - Blood Pressure Right Arm Sitting Blood Pressure: 117/60 Blood Pressure Mean: 79 Blood Pressure Source: Automatic Cuff Physician Notification - Physician Notified Physician Notified Date: 08/05/23 Physician Notified Time: 09:15 Physician: Alexandrea Stock - Notification Comment Comment: Oral hutson c\Dr. Stock regarding triage pt here for nausea and vomiting. Reported pt is actively vomiting and states she was exposed to COVID. Orders received to swab pt for both flu and COVID, start IV, give 1L of LR, 20 mg pepcid IVP and 4 mg zofran IVP. 1130: Spk c\Dr. Stock, advsd pt states feeling better after LR and medications. COVID +. Order rec'd to to offer antibodies to pt. If pt declines, may be discharged home, to follow up next week. 1140: Pt refused antibodies, requested to be discharged to rest at home. Maternal Triage Index - Stat/Priority 1 Stat Priority 1: No - Urgent/Priority 2 Urgent Priority 2: No - Prompt/Priority 3 Prompt Priority 3: No - Non-Urgent/Priority 4 Non-Urgent Priority 4: Yes Criteria Met for Priority 4: N/V x 2 days Disposition - Disposition OB Disposition: Discharge to home, Written follow up instructions reviewed Discharge Date: 08/05/23 Discharge Time: 11:45 I agree with the RN Medical Screening Exam: Yes Physician's MSE Comment: I have neither seen nor examined the patient Case reviewed; plan agreed upon as documented in EMR&OBIX.: Yes Diagnosis: MATERNAL CARE FOR PROBLEM, UNSP, SECOND * DO NOT USE *
== END 2023-08-05 11:45 | disposition home or self-care (01) ==
LOC: FBPOP 08:27
PROVIDERS: ATTEND Obstetrics & Gynecology
DX: O21.9 Vomiting of pregnancy, unspecified (principal); O99.332 Smoking (tobacco) complicating pregnancy, second trimester; F17.210 Nicotine dependence, cigarettes, uncomplicated; Z3A.24 24 weeks gestation of pregnancy
CPT/HCPCS: 96361; 96374; 96375; 87636; G0463; J2405; J3490; 99214

== ENCOUNTER 2023-11-19 21:53 | Inpatient (IN) | payer OTHER ==
[2023-11-20] MEDS: LACTATED RINGERS 1,000 ML IV ONE
[2023-11-20] MEDS: NALBUPHINE 10 MG/ML (10 ML MDV) IV PRN (00:15)
[2023-11-20] MEDS: LACTATED RINGERS 1,000 ML IV SCH (00:55)
[2023-11-20] MEDS ORDERED: METHYLERGONOVINE 0.2 MG/ML 1 ML AMP IM PRN (03:24)
[2023-11-20] MEDS ORDERED: LIDOCAINE 0.5% (PF) 5 MG/ML (50 ML SDV) SQ PRN (03:24)
[2023-11-20] MEDS ORDERED: miSOPROStoL 200 MCG TAB PO PRN (03:24)
[2023-11-20] MEDS ORDERED: TERBUTALINE 1 MG/ML VIAL SQ PRN (03:24)
[2023-11-20] MEDS ORDERED: CARBOPROST TROMETHAMINE 250 MCG/ML 1 ML AMP IM PRN (03:24)
[2023-11-20] MEDS ORDERED: TRANEXAMIC 1,000 MG/100ML-NACL 1,000 MG in EMPTY BAG 1 BAG IV PRN (03:24)
[2023-11-20] MEDS ORDERED: OXYTOCIN 10 UNIT/ML 1 ML VIAL IM PRN (03:24)
[2023-11-20] MEDS ORDERED: LACTATED RINGERS 1,000 ML IV SCH (03:30)
[2023-11-20 03:38] LABS: Basophils # (A) 0.1 k/uL (0-0.2); Basophils % (A) 0 %; Eosinophils # (A) 0.2 k/uL (0-0.7); Eosinophils % (A) 1 %; HCT 33.8 % (34.0-46.0); HGB 10.7 gm/dL (11.4-16.0); Hypochromasia Moderate; Lymphocytes # (A) 2.8 k/uL (1.0-4.8); Lymphocytes % (A) 15 %; MCH 24.5 pg (25.0-35.0); MCHC 31.5 g/dL (31.0-37.0); MCV 77.8 fL (80.0-100.0); Mean Platelet Volume 8.9; Monocytes % (A) 5 %; Neutrophils # (A) 14.3 k/uL (1.3-7.7); Neutrophils % (A) 77 %; Platelet Count 453 k/uL (150-450); Poikilocytosis Slight; RBC 4.35 m/uL (3.80-5.40); RDW 15.4 % (11.5-15.5); WBC 18.5 k/uL (4.0-11.0)
[2023-11-20 03:45] VITALS: RESP 16
[2023-11-20] MEDS: PENICILLIN G POTASSIUM 5,000,000 UNIT in DEXTROSE 5% IN WATER 100 ML IVPB ONE (03:45)
[2023-11-20] MEDS ORDERED: fentaNYL (PF) 50 MCG/ML 5 ML AMP ONE (04:25)
[2023-11-20] MEDS ORDERED: SODIUM CHLORIDE 0.9% 250 ML BAG ONE (04:25)
[2023-11-20] MEDS ORDERED: ROPIVACAINE 5 MG/ML 30 ML VIAL ONE (04:25)
[2023-11-20] MEDS: OXYTOCIN 30 UNITS/500 ML NS 30 UNIT in SALINE 1 500ML.BAG IV SCH (07:34)
[2023-11-20] MEDS: PENICILLIN G POTASSIUM 2,500,000 UNIT in DEXTROSE 5% IN WATER 100 ML IVPB SCH (07:38)
--- NOTE | 2023-11-20 08:52 | P.HPOB ---
History of Present Illness H&P Date: 11/20/23 Chief Complaint: Labor Ms. Sanders is a 18 year old at 39 weeks and 2 days with EDC of 11/25/2023 by LMP consistent with 6 week US who presents with regular uterine contractions. While being monitored in triage, the patient made change from 1 centimeter to 3 centimeters so she was admitted and she received an epidural per her request. The has been complicated by the finding of a circumvallate placenta. The fetus is estimated in the 30%ile by a 32 week growth ultrasound. work-up: blood type A positive, antibody screen negative, rubella non- immune, VDRL non-reactive, HBsAg negative, HIV negative, HCV Ab negative, gonorrhea negative, chlamydia negative, 1 hour GTT within normal limits, GBS positive. Maternal past medical history: depression and bipolar disorder not on medications, mild intermittent asthma Past Medical History Past Medical History: Asthma History of Any Multi-Drug Resistant Organisms: None Reported Past Surgical History: No Surgical Hx Reported Past Anesthesia/Blood Transfusion Reactions: No Reported Reaction Past Psychological History: ADD/ADHD, Anxiety, Bipolar, Depression Smoking Status: Never smoker Past Alcohol Use History: None Reported Past Drug Use History: None Reported - Past Family History Brother(s) Additional Family Medical History / Comment(s): brother has a genetic heart condition, pt unsure of the name, Medications and Allergies Allergies Allergy/AdvReac Type Severity Reaction Status Date / Time No Known Allergies Allergy Verified 11/19/23 23:24 Exam Vital Signs Temp Pulse Resp BP 11/19/23 22:48 97.3 F L 104 H 16 117/61 Intake and Output 11/19/23 11/20/23 11/20/23 22:59 06:59 14:59 Intake Total 1999 Balance 1999 Intake: IV 1999 Other: # Voids 1 Weight 68.946 kg Focused physical exam is performed. This is a healthy-appearing in no apparent distress. Breathing is non-labored. Abdomen is gravid and non-tender. Cervical exam is 4.5 cm, 90% effacement, -2 station. AROM is undertaken with clear fluid noted. Extremities non-tender and non-edematous. heart tones are Category I and tocometer is graphing contractions every 2-5 minutes. Results Result Diagrams: 03/14/24 00:01 Abnormal Lab Results - Last 24 Hours (Table) 11/20/23 Range/Units 00:01 WBC 18.5 H (4.0-11.0) k/uL Hgb 10.7 L (11.4-16.0) gm/dL Hct 33.8 L (34.0-46.0) % MCV 77.8 L (80.0-100.0) fL MCH 24.5 L (25.0-35.0) pg Plt Count 453 H (150-450) k/uL Neutrophils # 14.3 H (1.3-7.7) k/uL Assessment and Plan Assessment: 18 year old at 39 weeks and 2 days presenting in labor Plan: Admit, pitocin augmentation, continuous EFM and tocometer, close monitoring of patient. Anticipate vaginal delivery. Time with Patient: Less than 30
[2023-11-20] MEDS ORDERED: HYDROCORTISONE 2.5% RECTAL CREAM 30 GM TUBE RECTAL PRN (09:42)
[2023-11-20] MEDS ORDERED: ZOLPIDEM 5 MG TAB PO PRN (09:42)
[2023-11-20] MEDS ORDERED: diphenhydrAMINE 50 MG CAP PO PRN (09:42)
[2023-11-20] MEDS ORDERED: LANOLIN CREAM 1 GM TUBE TOPICAL PRN (09:42)
[2023-11-20] MEDS ORDERED: SIMETHICONE 80 MG CHEWABLE PO PRN (09:42)
[2023-11-20] MEDS ORDERED: diphenhydrAMINE 50 MG/ML 1 ML VIAL IVP PRN ×2 (09:42)
[2023-11-20] MEDS ORDERED: BENZOCAINE/MENTHOL SPRAY 1 GM/SPRAY AEROSOL TOPICAL PRN (09:42)
--- NOTE | 2023-11-20 09:42 | P.PROBDLV ---
Vaginal Delivery Note - . Vaginal Delivery Note: DATE OF SERVICE: 11/20/2023 PROCEDURE: Normal Vaginal Delivery ATTENDING: Dr. Alexandrea Stock MD ESTIMATED BLOOD LOSS: 200 mL FINDINGS: VFI, Apgars 9/9. Weight 7 pounds and 9 ounces (3420 grams) PROCEDURE: Ms. Sanders is a 18 year old at 39 weeks and 2 days presenting to labor and delivery in spontaneous labor. The has been complicated by a circumvallate placenta. For further details, please review the admitting H&P. The patient received epidural anesthesia per her request. Once the patient reached 4-5 centimeters of dilation, AROM was performed at 734 revealing clear amniotic fluid. The patient was completely dilated at 900. She pushed effec tively and a viable female was delivered at 918. The infant was placed on the maternal abdomen and bulb suctioned. The infant was noted to be spontaneously crying. Cord was clamped and cut after a 30-second delay. The infant was handed off to the pediatric team. Placenta was delivered whole with gentle cord traction at 921. Oxytocin was started to facilitate uterine tone. Uterine fundus was found to be firm and below the umbilicus upon fundal massage. Thorough examination of the cervix, vagina, periurethral area, and perineum revealed a deep left labia minora laceration. This was infiltrated with lidocaine and repaired with 3-0 Vicryl in a running fashion. The patient is stable and allowed to begin the bonding process.
[2023-11-20] MEDS: ONDANSETRON 4 MG TAB PO STA (13:13)
[2023-11-20] MEDS: SENNOSIDES-DOCUSATE SODIUM 1 EACH TAB PO SCH (20:53)
[2023-11-20] MEDS: IBUPROFEN 600 MG TAB PO PRN (20:53)
[2023-11-20] MEDS: diphenhydrAMINE 25 MG CAP PO PRN (20:53)
[2023-11-21] MEDS: ACETAMINOPHEN TAB 325 MG TAB PO PRN (00:30)
[2023-11-21 06:40] LABS: Basophils % (A) 0 %; Eosinophils # (A) 0.1 k/uL (0-0.7); Eosinophils % (A) 1 %; HCT 27.3 % (34.0-46.0); Hypochromasia Slight; Lymphocytes # (A) 2.8 k/uL (1.0-4.8); Lymphocytes % (A) 22 %; MCH 24.8 pg (25.0-35.0); MCHC 31.8 g/dL (31.0-37.0); MCV 77.8 fL (80.0-100.0); Mean Platelet Volume 7.7; Microcytosis Slight; Monocytes # (A) 0.6 k/uL (0-1.0); Monocytes % (A) 5 %; Neutrophils # (A) 9.3 k/uL (1.3-7.7); Neutrophils % (A) 71 %; Platelet Count 393 k/uL (150-450); Poikilocytosis Slight; RBC 3.51 m/uL (3.80-5.40); RDW 15.9 % (11.5-15.5); WBC 13.1 k/uL (4.0-11.0)
[2023-11-21 07:01] LABS: HGB 8.7 gm/dL (11.4-16.0)
[2023-11-21 09:11] VITALS: BP 110/64; PULSE 79; TEMP 98.4
--- NOTE | 2023-11-21 10:48 | P.DS ---
Providers Date of admission: 11/20/23 03:07 Expected date of discharge: 11/21/23 Attending physician: Alexandrea Stock MD Primary care physician: Stated None Hospital Course: Ms. Sanders is a 18 year old now PPD#1 s/p normal spontaneous vaginal delivery. The patient is doing well this morning and had no acute events overnight. She has no complaints this morning. She reports minimal lochia, passing flatus, voiding without difficulty, ambulating, and eating/drinking without nausea or vomiting. doing well at bedside. She denies chest pain, shortness of breathing, fevers, or chills overnight. She denies pain or swelling in the legs. restrictions are reviewed with the patient including pelvic rest for 6 weeks. The patient is encouraged to call the office if she experiences any heavy bleeding, foul-smelling discharge, breast complaints, or any if she has any other concerns. She will follow up in the office with in 6 weeks for postoperative exam. All questions are answered. Assessment: 18 year old now PPD#1 s/p Patient Condition at Discharge: Good Plan - Discharge Summary New Discharge Prescriptions: New Ibuprofen [Motrin] 600 mg PO Q6HR PRN #30 tab PRN Reason: Mild Pain (Scale 1 To 3) Acetaminophen Tab [Tylenol] 650 mg PO Q6H PRN #30 tab PRN Reason: Mild Pain (Scale 1 To 3) Discharge Medication List Acetaminophen Tab [Tylenol] 650 mg PO Q6H PRN #30 tab 11/21/23 [Rx] Ibuprofen [Motrin] 600 mg PO Q6HR PRN #30 tab 11/21/23 [Rx] Follow up Appointment(s)/Referral(s): Alexandrea Stock MD [STAFF PHYSICIAN] - 6 Weeks Activity/Diet/Wound Care/Special Instructions: Instructions 1. Do not begin any exercise program for 3 weeks. 2. Do not resume sexual relations for 6 weeks or longer if uncomfortable. 3. You may take tub baths or showers at any time. 4. You may use tampons if desired after 6 weeks. 5. Keep any areas repaired with stitches clean and dry. 6. If you are not nursing, wear a good fitting, supportive bra during the day and limit fluid intake for at least 1 week to prevent breast engorgement. 7. Call the office, , within the next week to make appointment for your 6 week checkup if it has not already been made. 8. Report any of the following occurrences to the doctor promptly: a. Heavy, excessive bleeding b. Chills, fever c. Burning or frequency of urination d. Pain or redness and breasts if nursing e. Increasing pain or swelling of vulva (stitches). In addition to the above instructions, the following additional should be followed: 1. No heavy lifting or straining (exercising) until after 6 week checkup. 2. Keep abdominal incision clean and dry: You may wear a dressing if more comfortable. 3. Make office appointment for 2 weeks after delivery date. Discharge Disposition: HOME SELF-CARE
[2023-11-21] MEDS: MEASLES-MUMPS-RUBELLA VACC/PF 12,500 UNIT/0.5 ML VIAL SQ ONE (13:42)
== END 2023-11-21 14:15 | disposition other institution (70) | DRG 560 ==
LOC: FBPOP 21:53 → 4FBP 11-20 03:07
PROVIDERS: ADMIT Obstetrics & Gynecology; ATTEND Obstetrics & Gynecology
PROC: 10E0XZZ Delivery of Products of Conception, External Approach (ICD-10-PCS; principal; 2023-11-20)
PROC: 10907ZC Drainage of Amniotic Fluid, Therapeutic from Products of Conception, Via Natural or Artificial Opening (ICD-10-PCS; 2023-11-20)
PROC: 0HQ9XZZ Repair Perineum Skin, External Approach (ICD-10-PCS; 2023-11-20)
DX: O43.113 Circumvallate placenta, third trimester (principal); O70.0 First degree perineal laceration during delivery; J45.20 Mild intermittent asthma, uncomplicated; F41.9 Anxiety disorder, unspecified; F31.9 Bipolar disorder, unspecified; F90.9 Attention-deficit hyperactivity disorder, unspecified type; O99.344 Other mental disorders complicating childbirth; O99.52 Diseases of the respiratory system complicating childbirth; Z37.0 Single live birth; Z3A.39 39 weeks gestation of pregnancy; Z28.310 Unvaccinated for COVID-19
CPT/HCPCS: 36415; 59025; 85025; 86850; 86900; 86901; 90707; 96361; 96374; 99214

== ENCOUNTER 2024-06-17 19:45 | Emergency (ER) | payer OTHER ==
--- NOTE | 2024-06-17 21:00 | ED ---
Nausea/Vomiting/Diarrhea HPI - General Source: patient, RN notes reviewed Mode of arrival: ambulatory Limitations: no limitations <Saira Bhat - Last Filed: 06/17/24 20:58> - General Source: patient, police, RN notes reviewed, old records reviewed Limitations: no limitations - History of Present Illness MD complaint: nausea, vomiting, other (Positive for test) -: days(s) (3) Description of Vomiting: food contents, watery Associated Abdominal Pain: No Location: diffuse Radiation: none Severity: mild Severity scale (1-10): 2 Quality: cramping, aching Consistency: constant Improves with: none Associated Symptoms: loss of appetite, malaise, nausea/vomiting, weakness <Connor Lind - Last Filed: 06/19/24 22:33> - General Chief complaint: Nausea/Vomiting/Diarrhea Stated complaint: newly preg, vomiting Time Seen by Provider: 06/17/24 20:58 - History of Present Illness Initial comments: Quick [id number] female presenting with nausea/vomiting x 3 days. States she took a positive test yesterday. She does admit some intermittent vaginal spotting last week and she also reports some lower abdominal pain. (Saira Bhat) This is a 18-year-old female to the ER for positive nausea vomiting for 3 days with positive test. No abdominal pain mild vaginal spotting last week. Patient has no other complaints no fevers no significant abdominal pain or tenderness currently (Connor Lind) - Related Data Previous Rx's Medication Instructions Recorded Acetaminophen Tab [Tylenol] 650 mg PO Q6H PRN #30 tab 11/21/23 Ibuprofen [Motrin] 600 mg PO Q6HR PRN #30 tab 11/21/23 Allergies Allergy/AdvReac Type Severity Reaction Status Date / Time No Known Allergies Allergy Verified 06/17/24 19:53 Review of Systems ROS Other: All systems not noted in ROS Statement are negative. <Saira Bhat - Last Filed: 06/17/24 20:58> ROS Other: All systems not noted in ROS Statement are negative. <Connor Lind - Last Filed: 06/19/24 22:33> ROS Statement: Those systems with pertinent positive or pertinent negative responses have been documented in the HPI. Past Medical History Past Medical History: Asthma History of Any Multi-Drug Resistant Organisms: None Reported Past Surgical History: No Surgical Hx Reported Past Anesthesia/Blood Transfusion Reactions: No Reported Reaction Past Psychological History: ADD/ADHD, Anxiety, Bipolar, Depression Smoking Status: Never smoker Past Alcohol Use History: None Reported Past Drug Use History: None Reported - Past Family History Brother(s) Additional Family Medical History / Comment(s): brother has a genetic heart condition, pt unsure of the name, <Saira Bhat - Last Filed: 06/17/24 20:58> General Exam Limitations: no limitations <Saira Bhat - Last Filed: 06/17/24 20:58> General appearance: alert, in no apparent distress Head exam: Present: atraumatic, normocephalic, normal inspection Eye exam: Present: normal appearance, PERRL, EOMI. Absent: scleral icterus, conjunctival injection, periorbital swelling ENT exam: Present: normal exam, mucous membranes moist Neck exam: Present: normal inspection. Absent: tenderness, meningismus, lymphadenopathy Respiratory exam: Present: normal lung sounds bilaterally. Absent: respiratory distress, wheezes, rales, rhonchi, stridor Cardiovascular Exam: Present: regular rate, normal rhythm, normal heart sounds. Absent: systolic murmur, diastolic murmur, rubs, gallop, clicks GI/Abdominal exam: Present: soft, normal bowel sounds. Absent: distended, tenderness, guarding, rebound, rigid Extremities exam: Present: normal inspection, full ROM, normal capillary refill. Absent: tenderness, pedal edema, joint swelling, calf tenderness Back exam: Present: normal inspection Neurological exam: Present: alert, oriented X3, CN II-XII intact Psychiatric exam: Present: normal affect, normal mood Skin exam: Present: warm, dry, intact, normal color. Absent: rash <Connor Lind - Last Filed: 06/19/24 22:33> - General Exam Comments Initial Comments: Visual Physical Exam Vital signs reviewed General: Well-appearing, nontoxic, no acute distress. Head: Normocephalic, atraumatic Eyes: PERRLA, EOMI ENT: Airway patent Chest: Nonlabored breathing Skin: No visual rash, normal skin tone Neuro: Alert and oriented 3 Musculoskeletal: No gross abnormalities (Zohreh Bhatna) Course <Connor Lind Last Filed: 06/19/24 22:33> Vital Signs 06/17/24 06/17/24 19:52 23:46 Temperature 97.8 F 97.7 F Pulse Rate 78 66 Respiratory 18 16 Rate Blood Pressure 102/69 100/63 O2 Sat by Pulse 98 99 Oximetry - Reevaluation(s) Reevaluation #1: 06/17/24 23:10 Medical records reviewed (Connor Lind) Reevaluation #2: 06/17/24 23:10 Patient symptoms improved (Connor Lind) Reevaluation #3: 06/17/24 23:38 Patient informed of results and questions answered (Connor Lind) Reevaluation #4: Was pt. sent in by a medical professional or institution (DIAN Fitzpatrick, TRACER CLERK, urgent care, hospital, or intermediate...) When possible be specific @ -no Did you speak to anyone other than the patient for history (EMS, parent, family, police, friend...)? What history was obtained from this source @ -no Did you review nursing and triage notes (agree or disagree)? Why? @ -agree Are old charts reviewed (outside hosp., previous admission, EMS record, old EKG, old radiological studies, urgent care reports/EKG's, intermediate records)? Report findings @ -yes Differential Diagnosis (chest pain, altered mental status, abdominal pain women, abdominal pain men, vaginal bleeding, weakness, fever, dyspnea, syncope, headache, dizziness, GI bleed, back pain, seizure, CVA, palpatations, mental health, musculoskeletal)? @ -prior EKG interpreted by me (3pts min.). @ -yes X-rays interpreted by me (1pt min.). @ -no CT interpreted by me (1pt min.). @ -no U/S interpreted by me (1pt. min.). @ -Yes positive for IUP What testing was considered but not performed or refused? (CT, X-rays, U/S, labs)? Why? @ -none What meds were considered but not given or refused? Why? @ -none Did you discuss the management of the patient with other professionals (professionals i.e. , DIAN, TRACER CLERK, lab, RT, psych nurse, social worker clinical, sort operations supervisor, teacher, chief science officer, supportive employment case manager)? Give summary @ -no Was smoking cessation discussed for >3mins.? @ -no Was critical care preformed (if so, how long)? @ -no Were there social determinants of health that impacted care today? How? (Homelessness, low income, unemployed, alcoholism, drug addiction, transportation, low edu. Level, literacy, decrease access to med. care, usp, rehab)? @ -none Was there de-escalation of care discussed even if they declined (Discuss DNR or withdrawal of care, Hospice)? DNR status @ -no What co-morbidities impacted this encounter? (DM, HTN, Smoking, COPD, CAD, Cancer, CVA, ARF, Chemo, Hep., AIDS, mental health diagnosis, sleep apnea, morbid obesity)? @ -none Was patient admitted / discharged? Hospital course, mention meds given and route, prescriptions, significant lab abnormalities, going to OR and other pertinent info. @ - 25 Female to ER for evaluation of positive . Nausea vomiting of patient feels well here in the ER can be discharged home Discharge nausea vomiting in Undiagnosed new problem with uncertain prognosis? @ -no Drug Therapy requiring intensive monitoring for toxicity (Heparin, Nitro, Insulin, Cardizem)? @ -no Were any procedures done? @ -no Diagnosis/symptom? @ - Acute, or Chronic, or Acute on Chronic? @ -Acute Uncomplicated (without systemic symptoms) or Complicated (systemic symptoms)? @ -Complicated Side effects of treatment? @ -no Exacerbation, Progression, or Severe Exacerbation? @ -exacerbation Poses a threat to life or bodily function? How? (Chest pain, USA, ND, pneumonia, PE, COPD, DKA, ARF, appy, cholecystitis, CVA, Diverticulitis, Homicidal, Heidi cidal, threat to staff... and all critical care pts) @ -yes (Connor Lind) Medical Decision Making <Saira Bhat - Last Filed: 06/17/24 20:58> - Lab Data Result diagrams: 06/17/24 21:57 06/17/24 21:57 - Radiology Data Radiology results: report reviewed (USound is positive for IUP), image reviewed <Connor Lind - Last Filed: 06/19/24 22:33> - Medical Decision Making I completed the quick note portion of this chart signed Saira Bhat PA-C (Saira Bhat) 25 Female to ER for evaluation of positive . Nausea vomiting of patient feels well here in the ER can be discharged home (Connor Lind) - Lab Data Lab Results 06/17/24 06/17/24 06/17/24 Range/Units 21:57 21:57 21:57 WBC 6.8 (4.0-11.0) k/uL RBC 4.70 (3.80-5.40) m/uL Hgb 12.7 (11.4-16.0) gm/dL Hct 38.4 (34.0-46.0) % MCV 81.6 (80.0-100.0) fL MCH 27.1 (25.0-35.0) pg MCHC 33.2 (31.0-37.0) g/dL RDW 13.9 (11.5-15.5) % Plt Count 271 (150-450) k/uL MPV 7.3 Neutrophils % 61 % Lymphocytes % 27 % Monocytes % 6 % Eosinophils % 4 % Basophils % 1 % Neutrophils # 4.1 (1.3-7.7) k/uL Lymphocytes # 1.8 (1.0-4.8) k/uL Monocytes # 0.4 (0-1.0) k/uL Eosinophils # 0.3 (0-0.7) k/uL Basophils # 0.0 (0-0.2) k/uL Sodium 137 (137-145) mmol/L Potassium 3.8 (3.5-5.1) mmol/L Chloride 105 (98-107) mmol/L Carbon Dioxide 24 (22-30) mmol/L Anion Gap 8 mmol/L BUN 13 (7-17) mg/dL Creatinine 0.73 (0.52-1.04) mg/dL Est GFR (CKD-EPI)AfAm >90 (>60 ml/min/1.73 sqM) Est GFR (CKD-EPI)NonAf >90 (>60 ml/min/1.73 sqM) Glucose 94 (74-99) mg/dL Plasma Lactic Acid Héctor (0.7-2.0) mmol/L Calcium 9.3 (8.4-10.2) mg/dL Phosphorus 4.1 (2.5-4.5) mg/dL Magnesium 2.1 (1.6-2.3) mg/dL Total Bilirubin 0.9 (0.2-1.3) mg/dL AST 167 H (14-36) U/L ALT 237 H (4-34) U/L Alkaline Phosphatase 51 (38-126) U/L Total Protein 7.1 (6.3-8.2) g/dL Albumin 4.7 (3.5-5.0) g/dL Lipase 76 (23-300) U/L TSH 0.811 (0.465-4.680) mIU/L HCG, Quant 352713.0 mIU/mL Urine Color Yellow Urine Appearance Clear (Clear) Urine pH 6.5 (5.0-8.0) Ur Specific [place] 1.032 (1.001-1.035) Urine Protein Trace H (Negative) Urine Glucose (UA) Negative (Negative) Urine Ketones 1+ H (Negative) Urine Blood Negative (Negative) Urine Nitrite Negative (Negative) Urine Bilirubin Negative (Negative) Urine Urobilinogen 6.0 (<2.0) mg/dL Ur Leukocyte Esterase Negative (Negative) Blood Type Blood Type Recheck Bld Type Recheck Status 06/17/24 06/17/24 Range/Units 21:57 21:57 WBC (4.0-11.0) k/uL RBC (3.80-5.40) m/uL Hgb (11.4-16.0) gm/dL Hct (34.0-46.0) % MCV (80.0-100.0) fL MCH (25.0-35.0) pg MCHC (31.0-37.0) g/dL RDW (11.5-15.5) % Plt Count (150-450) k/uL MPV Neutrophils % % Lymphocytes % % Monocytes % % Eosinophils % % Basophils % % Neutrophils # (1.3-7.7) k/uL Lymphocytes # (1.0-4.8) k/uL Monocytes # (0-1.0) k/uL Eosinophils # (0-0.7) k/uL Basophils # (0-0.2) k/uL Sodium (137-145) mmol/L Potassium (3.5-5.1) mmol/L Chloride (98-107) mmol/L Carbon Dioxide (22-30) mmol/L Anion Gap mmol/L BUN (7-17) mg/dL Creatinine (0.52-1.04) mg/dL Est GFR (CKD-EPI)AfAm (>60 ml/min/1.73 sqM) Est GFR (CKD-EPI)NonAf (>60 ml/min/1.73 sqM) Glucose (74-99) mg/dL Plasma Lactic Acid Héctor 0.6 L (0.7-2.0) mmol/L Calcium (8.4-10.2) mg/dL Phosphorus (2.5-4.5) mg/dL Magnesium (1.6-2.3) mg/dL Total Bilirubin (0.2-1.3) mg/dL AST (14-36) U/L ALT (4-34) U/L Alkaline Phosphatase (38-126) U/L Total Protein (6.3-8.2) g/dL Albumin (3.5-5.0) g/dL Lipase (23-300) U/L TSH (0.465-4.680) mIU/L HCG, Quant mIU/mL Urine Color Urine Appearance (Clear) Urine pH (5.0-8.0) Ur Specific [place] (1.001-1.035) Urine Protein (Negative) Urine Glucose (UA) (Negative) Urine Ketones (Negative) Urine Blood (Negative) Urine Nitrite (Negative) Urine Bilirubin (Negative) Urine Urobilinogen (<2.0) mg/dL Ur Leukocyte Esterase (Negative) Blood Type A Positive Blood Type Recheck A Pos Bld Type Recheck Status No Disposition <Saira Bhat - Last Filed: 06/17/24 20:58> Is patient prescribed a controlled substance at d/c from ED?: No Time of Disposition: 23:30 <Connor Lind - Last Filed: 06/19/24 22:33> Clinical Impression: Dehydration, Nausea & vomiting, Disposition: HOME SELF-CARE Referrals: None,Stated [Primary Care Provider] - 1-2 days
--- NOTE | 2024-06-17 21:49 | US ---
EXAMINATION TYPE: Transabdominal DATE OF EXAM: 06/17/2024 9:19 PM COMPARISON: NONE CLINICAL INDICATION: Female, 18 years old with history of vaginal bleeding in ; No bleeding or cramping per patient. Patient states vomiting and nausea. Unsure of dates TECHNIQUE: Transabdominal with grayscale and color Doppler imaging including first trimester pregnanc y. FINDINGS: EXAM MEASUREMENTS: GESTATIONAL AGE / DATING Physician Established: Not established Dates by LMP: Unsure of LMP Dates by First Scan: No prev this is first scan Dates by Current Scan for: (7 weeks/0 days) EDC: 02/03/2025 MATERNAL ANATOMY Uterus: 9.3 x 6.2 x 8.0cm Right Ovary: 3.2 x 1.9 x 1.3cm. WNL as best seen Left Ovary: 2.8 x 2.0 x 1.7cm. WNL as best seen Post CDS / Adnexa: WNL Presence of free fluid: No Presence of corpus luteal cyst: Not seen Presence of subchorionic bleed: There is a 2.8 x 1.1 x 0.8cm hypoechoic crescentic area seen to the l eft of the gestational sac, compatible with subchorionic hematoma. GESTATION / SURVEY CRL: 0.98 (7 weeks/0 days) Yolk Sac (normal less than 6mm): 4mm Heart Rate: 141 bpm Rhythm: Normal IUP: Single viable IUP Date of LMP: Unsure of LMP Beta HcG (if available): Not available at this time IMPRESSION: 1. Single, live intrauterine measuring 7 weeks 0 days. 2. Moderate-sized subchorionic hematoma. Follow-up advised. [facility], , 06/17/2024 9:47 PM
[2024-06-17] MEDS: SODIUM CHLORIDE 0.9% 1,000 ML IV STA (22:03)
[2024-06-17] MEDS: ONDANSETRON 4 MG/2 ML VIAL IVP STA (22:05)
[2024-06-17] MEDS: diphenhydrAMINE 50 MG/ML 1 ML VIAL IVP STA (22:05)
[2024-06-17] MEDS: PYRIDOXINE 100 MG/ML 1 ML VIAL IVP ONE (22:12)
[2024-06-17 22:16] LABS: Basophils % (A) 1 %; Eosinophils # (A) 0.3 k/uL (0-0.7); Eosinophils % (A) 4 %; HCT 38.4 % (34.0-46.0); HGB 12.7 gm/dL (11.4-16.0); Lymphocytes # (A) 1.8 k/uL (1.0-4.8); Lymphocytes % (A) 27 %; MCH 27.1 pg (25.0-35.0); MCHC 33.2 g/dL (31.0-37.0); MCV 81.6 fL (80.0-100.0); Mean Platelet Volume 7.3; Monocytes # (A) 0.4 k/uL (0-1.0); Monocytes % (A) 6 %; Neutrophils # (A) 4.1 k/uL (1.3-7.7); Neutrophils % (A) 61 %; Platelet Count 271 k/uL (150-450); RDW 13.9 % (11.5-15.5); WBC 6.8 k/uL (4.0-11.0)
[2024-06-17 22:28] LABS: ALT 237 U/L (4-34); AST 167 U/L (14-36); African American GFR (CKD) >90 (>60 ml/min/1.73 sqM); Albumin 4.7 g/dL (3.5-5.0); Alkaline Phosphatase 51 U/L (38-126); Anion Gap 8 mmol/L; Blood Urea Nitrogen 13 mg/dL (7-17); Calcium 9.3 mg/dL (8.4-10.2); Carbon Dioxide 24 mmol/L (22-30); Chloride 105 mmol/L (98-107); Glucose 94 mg/dL (74-99); Lipase 76 U/L (23-300); Magnesium 2.1 mg/dL (1.6-2.3); Non-African American GFR(CKD) >90 (>60 ml/min/1.73 sqM); Phosphorus 4.1 mg/dL (2.5-4.5); Potassium 3.8 mmol/L (3.5-5.1); Sodium 137 mmol/L (137-145); Total Bilirubin 0.9 mg/dL (0.2-1.3); Total Protein 7.1 g/dL (6.3-8.2)
[2024-06-17 23:32] LABS: Appearance,Urine Clear (Clear); Bilirubin,Urine Negative (Negative); Blood,Urine Negative (Negative); Color,Urine Yellow; Glucose,Urine (UA) Negative (Negative); Ketones,Urine 1+ (Negative); Leukocyte Esterase,Urine Negative (Negative); Nitrite,Urine Negative (Negative); PH, Urine 6.5 (5.0-8.0); Protein,Urine Trace (Negative); Specific Gravity,Urine 1.032 (1.001-1.035)
[2024-06-17 23:48] VITALS: BP 100/63; PULSE 66; RESP 16; TEMP 97.7
== END 2024-06-18 | disposition home or self-care (01) ==
LOC: EC 19:45
CPT/HCPCS: 36415; 76801; 80053; 81003; 83605; 83690; 83735; 84100; 84443; 84702; 85025; 86900; 86901; 96361; 96374; 96375; 99284

== ENCOUNTER 2024-08-17 13:26 | Outpatient (CLI) | payer OTHER ==
[2024-08-17] MEDS: LACTATED RINGERS 1,000 ML IV ONE ×2 (13:59→14:28)
[2024-08-17 14:11] LABS: Basophils % (A) 1 %; Eosinophils # (A) 0.2 k/uL (0-0.7); Eosinophils % (A) 2 %; HCT 36.1 % (34.0-46.0); HGB 12.2 gm/dL (11.4-16.0); Lymphocytes # (A) 1.7 k/uL (1.0-4.8); Lymphocytes % (A) 25 %; MCH 27.2 pg (25.0-35.0); MCHC 33.7 g/dL (31.0-37.0); MCV 80.7 fL (80.0-100.0); Mean Platelet Volume 7.3; Monocytes # (A) 0.2 k/uL (0-1.0); Monocytes % (A) 3 %; Neutrophils # (A) 4.5 k/uL (1.3-7.7); Neutrophils % (A) 68 %; Platelet Count 267 k/uL (150-450); RBC 4.48 m/uL (3.80-5.40); RDW 13.7 % (11.5-15.5); WBC 6.7 k/uL (4.0-11.0)
[2024-08-17 14:19] LABS: Appearance,Urine Clear (Clear); Bilirubin,Urine Negative (Negative); Blood,Urine Negative (Negative); Color,Urine Yellow; Glucose,Urine (UA) Negative (Negative); Ketones,Urine Trace (Negative); Leukocyte Esterase,Urine Negative (Negative); Mucus,Urine Many /hpf; Nitrite,Urine Negative (Negative); PH, Urine 6.5 (5.0-8.0); Protein,Urine 1+ (Negative); RBC,Urine 1 /hpf (0-5); Specific Gravity,Urine 1.037 (1.001-1.035); Squamous Epithelial Cell,Urine 1 /hpf (0-4); WBC,Urine 2 /hpf (0-5)
[2024-08-17 14:20] LABS: ALT 12 U/L (4-34); AST 17 U/L (14-36); African American GFR (CKD) >90 (>60 ml/min/1.73 sqM); Albumin 4.1 g/dL (3.5-5.0); Alkaline Phosphatase 56 U/L (38-126); Anion Gap 7 mmol/L; Blood Urea Nitrogen 9 mg/dL (7-17); Carbon Dioxide 26 mmol/L (22-30); Chloride 102 mmol/L (98-107); Glucose 101 mg/dL (74-99); Non-African American GFR(CKD) >90 (>60 ml/min/1.73 sqM); Potassium 3.7 mmol/L (3.5-5.1); Sodium 135 mmol/L (137-145); Total Bilirubin 0.4 mg/dL (0.2-1.3); Total Protein 6.8 g/dL (6.3-8.2)
[2024-08-17 15:14] VITALS: BP 107/57; PULSE 88; RESP 16; TEMP 97
--- NOTE | 2024-09-03 23:11 | P.MSEPDOC ---
Presenting Problems - Arrival Data Date of Arrival on Unit: 08/17/24 Time of Arrival on Unit: 13:26 Mode of Transport: Ambulatory - Complaint OB-Reason for Admission/Chief Complaint: Acute Nausea/Vomiting Comment: Written order from Dr. Stock for CBC, CMP, urinalysis - Vomiting in O21.9 Medical History - Information : 2 Para: 1 Term: 1 : 0 Abortions: Spontaneous or Elective: 0 Number of Living Children: 1 - Gestational Age Gestational Age by ANGELES (wks/days): 15 Weeks and 5 Days - History Complications: Smoker Review of Systems - Review of Systems Constitutional: No problems Breast: No problems ENT: No problems Cardiovascular: No problems Respiratory: No problems Gastrointestinal: No problems Genitourinary: No problems Musculoskeletal: No problems Neurological: No problems Skin: No problems Vital Signs - Temperature Temperature: 97.0 F Temperature Source: Temporal Artery Scan - Pulse Pulse Oximetery Pulse Rate: 88 Pulse Assessment Method: Pulse Oximetry - Respirations Respiratory Rate: 16 Oxygen Delivery Method: Room Air O2 Sat by Pulse Oximetry: 100 - Blood Pressure Right Arm Blood Pressure: 107/57 Blood Pressure Mean: 73 Blood Pressure Source: Automatic Cuff Physician Notification - Physician Notified Physician Notified Date: 08/17/24 Physician Notified Time: 14:30 Physician: Alexandrea Stock Order Received: Yes - Notification Comment Comment: Reviewed lab work and urinalysis with Dr. Stock, reported just hung second bag of LR, pt is not actively vomiting and pt came in with [employer]. Order received to send pt home after second bag of LR is infused. Maternal Triage Index - Maternal Triage Index Presenting for scheduled procedure w/no complaint: No - Stat/Priority 1 Stat Priority 1: No - Urgent/Priority 2 Urgent Priority 2: No - Prompt/Priority 3 Prompt Priority 3: No - Non-Urgent/Priority 4 Non-Urgent Priority 4: No - Scheduled/Requesting Priority 5 Scheduled/Requesting Priority 5: Yes Criteria Met for Priority 5: Written order from Dr. Stock for CBC, CMP, urinalysis - Vomiting in O21.9 Disposition - Disposition OB Disposition: Discharge to home, Written follow up instructions reviewed Discharge Date: 08/17/24 Discharge Time: 15:02 I agree with the RN Medical Screening Exam: Yes Physician's MSE Comment: I have neither seen nor examined this patient Case reviewed; plan agreed upon as documented in EMR&OBIX.: Yes Diagnosis: DEHYDRATION
== END 2024-08-17 15:02 | disposition home or self-care (01) ==
LOC: FBPOP 13:26
PROVIDERS: ATTEND Obstetrics & Gynecology
DX: O21.1 Hyperemesis gravidarum with metabolic disturbance (principal); O99.333 Smoking (tobacco) complicating pregnancy, third trimester; F17.200 Nicotine dependence, unspecified, uncomplicated; Z3A.15 15 weeks gestation of pregnancy
CPT/HCPCS: 36415; 80053; 81001; 85025; 96360; 99214

== ENCOUNTER 2024-11-26 17:29 | Outpatient (CLI) | payer OTHER ==
[2024-11-26 18:27] VITALS: BP 116/67; PULSE 106; RESP 16; TEMP 97.3
--- NOTE | 2025-01-15 20:44 | P.MSEPDOC ---
Presenting Problems - Arrival Data Date of Arrival on Unit: 11/26/24 Time of Arrival on Unit: 17:29 Mode of Transport: Ambulatory - Complaint OB-Reason for Admission/Chief Complaint: Rule Out PROM Comment: leaking fluid since 729 Medical History - Information : 2 Para: 1 Term: 1 : 0 Abortions: Spontaneous or Elective: 0 Number of Living Children: 1 - Gestational Age Gestational Age by ANGELES (wks/days): 30 Weeks and 1 Days Review of Systems - Review of Systems Constitutional: No problems Breast: No problems ENT: No problems Cardiovascular: No problems Respiratory: No problems Gastrointestinal: No problems Genitourinary: No problems Musculoskeletal: No problems Neurological: No problems Skin: No problems Vital Signs - Temperature Temperature: 97.3 F Temperature Source: Temporal Artery Scan - Pulse Brachial Pulse Rate: 106 Pulse Assessment Method: Automatic Cuff - Respirations Respiratory Rate: 16 Oxygen Delivery Method: Room Air - Blood Pressure Right Arm Blood Pressure: 116/67 Blood Pressure Mean: 83 Blood Pressure Source: Automatic Cuff Medical Screen Scoring - Uterine Contractions Frequency From (mins): 0 Frequency To (mins): 0 - Assessment - Baby A Baseline FHR: 135 Heart Rate - NICHD Category: Category I (Normal) NST: Reactive Physician Notification - Physician Notified Physician Notified Date: 11/26/24 Physician Notified Time: 17:58 Physician: Alexandrea Stock New Order Received: Yes (discharge to home) Maternal Triage Index - Maternal Triage Index Presenting for scheduled procedure w/no complaint: No - Stat/Priority 1 Stat Priority 1: Yes Provider Notified: Alexandrea Stock Provider Notified Time: 17:58 Criteria Met for Priority 1: 30.1 weeks, leaking Disposition - Disposition OB Disposition: Triage, Written follow up instructions reviewed Discharge Date: 11/26/24 Discharge Time: 18:00 I agree with the RN Medical Screening Exam: Yes Physician's MSE Comment: I have neither seen nor examined the patient Case reviewed; plan agreed upon as documented in EMR&OBIX.: Yes Diagnosis: FALSE LABOR BEFORE 37 COMPLETED WEEKS OF GEST, THIRD TRI
== END 2024-11-26 18:00 ==
LOC: FBPOP 17:29
PROVIDERS: ATTEND Obstetrics & Gynecology
DX: O47.03 False labor before 37 completed weeks of gestation, third trimester (principal); O99.333 Smoking (tobacco) complicating pregnancy, third trimester; F17.290 Nicotine dependence, other tobacco product, uncomplicated; Z3A.30 30 weeks gestation of pregnancy
CPT/HCPCS: 59025; 84112; G0463; 99213

== ENCOUNTER 2025-01-30 00:26 | Outpatient (CLI) | payer OTHER ==
[2025-01-30] MEDS: IBUPROFEN 800 MG TAB PO STA (01:05)
[2025-01-30] MEDS: ACETAMINOPHEN TAB 500 MG TAB PO STA (01:06)
--- NOTE | 2025-01-30 03:09 | US ---
EXAM: US Pelvis Transabdominal, Complete CLINICAL HISTORY: Pain TECHNIQUE: Real-time complete transabdominal pelvic ultrasound with image documentation. COMPARISON: No relevant prior studies available. FINDINGS: Uterus/cervix: There is avascular heterogeneous material in the endometrial canal lower uterine segment. uterus measures 16.7 x 8.7 x 11.8 cm. No myometrial mass. Right ovary: Nonvisualized right ovary secondary to overlying bowel gas. Left ovary: The left ovary measures 3.0 x 1.5 x 1.7 cm. No torsion. Free fluid: No free fluid. Bladder: Unremarkable as visualized. Wall is normal thickness for degree of distention. IMPRESSION: 1. There is avascular heterogeneous material in the endometrial canal lower uterine segment. This could represent blood products, cannot exclude retained product of conception. 2. Nonvisualized right ovary secondary to overlying bowel gas.
[2025-01-30 04:26] VITALS: BP 121/65; PULSE 109; RESP 18; TEMP 97.6
--- NOTE | 2025-02-26 15:00 | P.MSEPDOC ---
Presenting Problems - Arrival Data Date of Arrival on Unit: 01/30/25 Time of Arrival on Unit: 00:26 Mode of Transport: Ambulatory - Complaint OB-Reason for Admission/Chief Complaint: Vaginal Bleeding, Other Comment: Patient came to triage with report of having heavy post bleeding, lower abdominal pain, and something was hanging out of her vagina. Pt was discharged 01/29/25 around 3pm. Medical History - Information : 2 Para: 2 Term: 2 : 0 Abortions: Spontaneous or Elective: 0 Number of Living Children: 2 - Gestational Age Gestational Age by ANGELES (wks/days): 40 Weeks and 2 Days - History Comment: Patient delivered 01/28/25 Review of Systems - Review of Systems Constitutional: No problems Breast: No problems ENT: No problems Cardiovascular: No problems Respiratory: No problems Gastrointestinal: No problems Genitourinary: No problems Musculoskeletal: No problems Neurological: No problems Skin: No problems Vital Signs - Temperature Temperature: 97.6 F Temperature Source: Temporal Artery Scan - Pulse Pulse Oximetery Pulse Rate: 109 Pulse Assessment Method: Pulse Oximetry - Respirations Respiratory Rate: 18 Oxygen Delivery Method: Room Air O2 Sat by Pulse Oximetry: 99 - Blood Pressure Right Arm Blood Pressure: 121/65 Blood Pressure Mean: 83 Blood Pressure Source: Automatic Cuff Physician Notification - Physician Notified Physician Notified Date: 01/30/25 Physician Notified Time: 00:32 Physician: Alexandrea Stock Order Received: Yes (Orders for a speculum exam and tylenol and motrin.) - Notification Comment Comment: notified of pt complaint of heavy bleeding, abd pain, and something hanging out of her vagina. Pt reports that she has not had any pain since leaving the hospital yesterday afternoon. Maternal Triage Index - Maternal Triage Index Presenting for scheduled procedure w/no complaint: No - Stat/Priority 1 Stat Priority 1: No - Urgent/Priority 2 Urgent Priority 2: No - Prompt/Priority 3 Prompt Priority 3: No - Non-Urgent/Priority 4 Non-Urgent Priority 4: Yes Criteria Met for Priority 4: Patient came to triage with report of having heavy post bleeding, lower abdominal pain, and something was hanging out of her vagina. Disposition - Disposition OB Disposition: Discharge to home Discharge Date: 01/30/25 Discharge Time: 03:35 I agree with the RN Medical Screening Exam: Yes Physician's MSE Comment: I have neither seen nor examined the patient Case reviewed; plan agreed upon as documented in EMR&OBIX.: Yes Diagnosis: ENCOUNTER FOR ROUTINE FOLLOW-UP
== END 2025-01-30 03:35 | disposition home or self-care (01) ==
LOC: FBPOP 00:26
PROVIDERS: ATTEND Obstetrics & Gynecology
DX: Z39.2 Encounter for routine postpartum follow-up (principal); O99.335 Smoking (tobacco) complicating the puerperium; F17.210 Nicotine dependence, cigarettes, uncomplicated; Z3A.40 40 weeks gestation of pregnancy
CPT/HCPCS: 76856; G0463; 99213